=== PATIENT | male | born 1960 | race Caucasian/White ===

== ENCOUNTER 2020-09-15 13:56 | Outpatient (REF) | payer MEDICARE, MEDICAID, SELFPAY ==
[2020-09-15 15:00] LABS: MANUAL DIFF FLAG NO
[2020-09-15 15:04] LABS: Basophils Absolute Auto 0.1 X10*3/uL (0.0-0.2); Eosinophils Absolute Auto 0.1 X10*3/uL (0.0-0.4); Eosinophils Percent Auto 2.4 % (0-4); Hemoglobin 15.2 g/dl (14.0-18.0); Imm Gran Abs Auto 0.01 X10*3/uL (0.00-0.03); Imm Gran Pct Auto 0.2 % (0.0-0.4); Lymphocytes Absolute Auto 2.5 X10*3/uL (1.2-4.9); Lymphocytes Percent Auto 43.2 % (20-40); Mean Corpuscular HGB Conc 34.5 g/dl (31.0-36.0); Mean Corpuscular Hemoglobin 29.9 pg (27.0-33.0); Mean Corpuscular Volume 86.6 fL (80-98); Mean Platelet Volume 10.5 fL (9.4-12.4); Monocytes Absolute Auto 0.5 X10*3/uL (0.1-1.2); Monocytes Percent Auto 8.8 % (2-11); Neutrophils Absolute Auto 2.6 X10*3/uL (2.0-8.3); Neutrophils Percent Auto 44.4 % (45-73); Platelet Count 280 X10*3/uL (160-400); Red Blood Count 5.08 X10*6/uL (4.60-5.80); Red Cell Distribution Width 11.8 % (11.0-16.0); White Blood Count 5.8 X10*3/uL (4.8-10.8)
[2020-09-15 15:17] LABS: Estimated Average Glucose 114 mg/dL; Hemoglobin A1c % 5.6 %
[2020-09-15 15:34] LABS: Alanine Aminotransferase 35 U/L (0-40); Albumin Level 4.4 g/dL (3.5-5.0); Alkaline Phosphatase 43 U/L (39-117); Anion Gap 13 (12-20); Aspartate Amino Transferase 36 U/L (5-37); Bilirubin Total 0.3 mg/dL (0.0-1.0); Blood Urea Nitrogen 13 mg/dL (9-16); Calcium 8.9 mg/dL (8.4-10.2); Carbon Dioxide 28 mmol/L (22-29); Chloride 103 mmol/L (96-108); Cholesterol 174 mg/dL; Estimated Glomerular Filt Rate > 60; Glucose Random 98 mg/dL (60-115); HDL Cholesterol 43 mg/dL; LDL Cholesterol Calculated 110 mg/dl; Potassium 4.3 mmol/L (3.3-5.1); Sodium 140 mmol/L (135-145); Total Protein 6.9 g/dL (6.5-8.0); Triglycerides 109 mg/dL
[2020-09-15 15:55] LABS: Free T4 (Free Thyroxine) 1.13 ng/dL (0.71-1.85); Prostate Specific Antigen Scr 1.76 ng/mL (<0.05-4.0); Thyroid Stimulating Hormone 1.39 uIU/mL (0.32-4.0)
[2020-09-15 16:08] LABS: Folate > 20.0 ng/mL (> or = 4.0); Vitamin B12 884 pg/mL (200-900)
[2020-09-20 15:52] LABS: Testosterone, Total 168 ng/dL (250-1100)
== END 2020-09-15 13:57 | disposition home or self-care (01) ==
LOC: HO.LAB 13:56
PROVIDERS: Visit Provider Internal Medicine
DX: I10 Essential (primary) hypertension (principal); E78.00 Pure hypercholesterolemia, unspecified; R73.02 Impaired glucose tolerance (oral); Z12.5 Encounter for screening for malignant neoplasm of prostate
CPT/HCPCS: 36415; 80053; 80061; 82607; 82746; 83036; 84153; 84403; 84439; 84443; 85025

== ENCOUNTER 2021-04-19 07:56 | Day surgery (SDC) | payer MEDICARE, SELFPAY ==
--- NOTE | 2021-04-18 13:46 | HO.ANESPROP2 ---
Documented by User: Kylee Rome NP 04/18/21 13:47 HPI - Anesthesia Eval Consult details Narrative: 60yo M for Colonoscopy Tramadol daily PMFSH Active Problems Active Problems: All Active Problems (Updated 04/12/21 @ 09:35 by Ramila Sharp, ERIC) Medicare annual wellness visit, initial (Acute) Hypogonadism (Acute) Colon cancer screening (Acute) Low testosterone (Acute) Impaired glucose tolerance (Acute) Hypercholesterolemia (Acute) Hypertension (Acute) Obesity (BMI 30-39.9) (Acute) Anxiety and depression (Acute) Degenerative disc disease, cervical (Acute) GERD (gastroesophageal reflux disease) (Acute) Past Medical History Medical History Acute meniscal tear of knee Anxiety and depression Degenerative disc disease, cervical GERD (gastroesophageal reflux disease) History of OCD (obsessive compulsive disorder) Hypercholesterolemia Hypertension Impaired glucose tolerance Obesity (BMI 30-39.9) Polyp of left ear canal Vitamin D deficiency Family History Family History Father Lung cancer Mother Leukemia Paternal Grandfather Myocardial infarction Son In good health Substance abuse Brother Substance abuse Surgical History Surgical History History of appendectomy History of esophagogastroduodenoscopy (EGD) Total knee replacement status Social History Social History Alcohol intake: current Alcohol intake frequency: holidays/special occasions only Patient Tobacco Use Status: Never used Tobacco Use of substances other than those prescribed or required for medical reasons: No Are you DNR?: No Advance Directives: No Advance Directives Information Provided: Yes Meds Allergies Allergy/AdvReac Type Severity Reaction Status Date / Time No Known Allergies Allergy Verified 04/19/21 08:04 [No Known Allergies*] Exam Exam Date and Time: April 18, 2021 134 Assessment and Plan Assessment Anesthesia Assessment: Chart Reviewed Documented by User: Daiana Richmond MD 04/19/21 09:46 PMFSH Past Medical History Medical History Acute meniscal tear of knee Anxiety and depression Degenerative disc disease, cervical GERD (gastroesophageal reflux disease) History of OCD (obsessive compulsive disorder) Hypercholesterolemia Hypertension Impaired glucose tolerance Obesity (BMI 30-39.9) Polyp of left ear canal Vitamin D deficiency Family History Family History Father Lung cancer Mother Leukemia Paternal Grandfather Myocardial infarction Son In good health Substance abuse Brother Substance abuse Surgical History Surgical History History of appendectomy History of esophagogastroduodenoscopy (EGD) Total knee replacement status History of Problems with Anesthesia: No Social History Social History Alcohol intake: current Alcohol intake frequency: holidays/special occasions only Patient Tobacco Use Status: Never used Tobacco Use of substances other than those prescribed or required for medical reasons: No Are you DNR?: No Advance Directives: No Advance Directives Information Provided: Yes Meds Allergies Allergy/AdvReac Type Severity Reaction Status Date / Time No Known Allergies Allergy Verified 04/19/21 08:04 [No Known Allergies*] Exam Airway Mallampati Class: III TM Dist: >3cm Neck ROM: Full Loose/Missing/Broken Teeth: No Heart: RRR Lungs: CTA Assessment and Plan Assessment Anesthesia Assessment: Anesthesia Plan Discussed Final Anesthetic Review History of Problems with Anesthesia: No NPO: Yes ASA Class: II Final Preanesthetic Review: Meds/Allgs Chart Reviewed, Consent Obtained/Reviewed and Anes Risks/Benef Reviewed Patient Risk: Low Procedure Risk: Low Anesthetic Plan Anesthetic Plan: MAC: Disposition: Standard PACU
[2021-04-19 08:22] VITALS: BP 129/75; PULSE 50; RESP 18; TEMP 36.4; O2SAT 94; BMI 31.8
[2021-04-19] MEDS: Lactated Ringers 1,000 ML 100 ML IVCONT (08:38)
[2021-04-19 10:30] VITALS: BP 130/60; PULSE 54; RESP 18; TEMP 36.1; O2SAT 97
--- NOTE | 2021-04-19 10:34 | PM.OP ---
Brief Operative Note Date of Service: 04/19/21 Pre-op diagnosis: Screening Post-op diagnosis: other (Coolon polyps) Procedure: Colonoscopy to the cecum and TI with snare polypectomy Surgeon: Thanh Castillo Anesthesia: MAC Was an Failure Analysis Technician used for this Procedure?: No Estimated blood loss (mL): 2.0 Pathology: other (A. Colon polyp at 20cm B. Colon polyp at 15cm) Condition: stable Disposition: PACU
[2021-04-19 10:45] VITALS: BP 145/88; PULSE 54; RESP 18; TEMP 36.1; O2SAT 97
--- NOTE | 2021-04-19 10:59 | OP_ITS ---
SURGEON: Thanh Castillo MD INDICATIONS: The patient presents for evaluation of colorectal cancer screening and reported history of colon polyps. Full consent has been obtained from him for this, including risks of bleeding and perforation. PREOPERATIVE DIAGNOSIS: POSTOPERATIVE DIAGNOSIS: PROCEDURE PERFORMED: Colonoscopy to the cecum and terminal ileum with snare polypectomy. ESTIMATED BLOOD LOSS: COMPLICATIONS: ANESTHESIA: Monitored anesthesia care. ASSISTANTS: SPECIMENS: PREOPERATIVE DIAGNOSES: Colorectal cancer screening and personal history of colon polyps. POSTOPERATIVE DIAGNOSES: Colorectal cancer screening and personal history of colon polyps, colon polyps, diverticulosis and internal hemorrhoids. DESCRIPTION OF PROCEDURE: The patient was placed in the left lateral decubitus position. The digital rectal exam revealed no abnormalities. The Olympus video pediatric colonoscope was entered into the rectum and advanced easily to the cecum. Once in the cecum, I did identify normal-appearing cecal pouch with appendiceal orifice and a normal-appearing ileocecal valve. The terminal ileum was cannulated and appeared normal. The scope was withdrawn back in the colon. The entire cecum and ileocecal valve appeared normal. The scope was slowly withdrawn assessing all mucosal surfaces carefully. There was a fair amount of liquid stool present in the colon, but considerable time was spent irrigating and suctioning away the liquid to ultimately allow for a very good prep. At 20 cm, was an approximately 10 mm polyp, which was snared and recovered by suction. The polypectomy site appeared clean, without any sign of residual polyp nor bleeding. At 15 cm, was approximately 8 mm polyp, which was snared and recovered by suction. The polypectomy site appeared clean, without any sign of residual polyp nor bleeding. I did not visualize any other polyps, colitis, nor angiodysplasia. There was a mild amount of sigmoid diverticulosis. In the rectum, scope was retroflexed visualizing internal hemorrhoids, but no other pathology. The rectal mucosa appeared normal. The scope was straightened out and withdrawn from the patient. He tolerated the procedure well and was returned to the recovery area in stable condition. IMPRESSION: 1. Colon polyps, status post snare polypectomy. 2. Diverticulosis. 3. Internal hemorrhoids. PLAN: The results of the pathology will be checked. I would recommend a repeat colonoscopy in 5 years for further screening. He was advised not to use any aspirin and NSAIDs for 1 week. MD OLU Carvalho/PORTILLO / [id number]
== END 2021-04-19 11:31 | disposition home or self-care (01) ==
PROVIDERS: PCP Internal Medicine; Visit Provider Internal Medicine
PROC: 0DJD8ZZ Inspection of Lower Intestinal Tract, Via Natural or Artificial Opening Endoscopic (ICD-10-PCS; CPT 45378; principal; 2021-04-19 09:10)
DX: Z12.11 Encounter for screening for malignant neoplasm of colon (principal); D12.6 Benign neoplasm of colon, unspecified; K63.5 Polyp of colon; K57.30 Diverticulosis of large intestine without perforation or abscess without bleeding; K64.8 Other hemorrhoids; Z86.010 Personal history of colon polyps; I10 Essential (primary) hypertension
CPT/HCPCS: 45385; 88305

== ENCOUNTER 2022-04-05 10:03 | Outpatient (REF) | payer MEDICARE, SELFPAY ==
--- NOTE | ~2022-04-05 | XR_ITS ---
EXAMINATION: XR SHOULDER, LEFT CLINICAL INFORMATION: Left shoulder pain. Strain. COMPARISON: None TECHNIQUE: Left shoulder is imaged in 3 views. FINDINGS: No fracture, dislocation, destructive process. No visible rotator cuff calcifications. The acromioclavicular alignment is normal. There are mild degenerative changes acromioclavicular joint. Mild whiskering inferior glenoid likely related to origin inferior glenohumeral ligaments. XR/XR shoulder LT min 2V IMPRESSION: -Mild degenerative change acromioclavicular joint. -No visible rotator cuff calcifications.
== END 2022-04-05 10:04 | disposition home or self-care (01) ==
LOC: HO.XRAY 10:03
PROVIDERS: PCP Internal Medicine; Visit Provider Physician Assistant
DX: S46.012A Strain of muscle(s) and tendon(s) of the rotator cuff of left shoulder, initial encounter (principal)
CPT/HCPCS: 73030

== ENCOUNTER → 2022-04-10 10:41 | Outpatient (BNVA) | payer MEDICARE, SELFPAY | PROVIDERS: PCP Internal Medicine; Visit Provider Physician Assistant | DX: M75.102 Unspecified rotator cuff tear or rupture of left shoulder, not specified as traumatic (principal) | CPT/HCPCS: 20610; 99202; J1040 ==

== ENCOUNTER 2022-04-24 07:21 | Outpatient (REF) | payer MEDICARE, SELFPAY ==
--- NOTE | ~2022-04-24 | MR_ITS ---
EXAMINATION: MRI LEFT SHOULDER WITHOUT CONTRAST CLINICAL INFORMATION: S46.012A - Strain of muscle(s) and tendon(s) of the rotator cuff of left... COMPARISON: None. TECHNIQUE: MR images of the shoulder were obtained on a 1.5 Nidia high-field strength scanner without intravenous contrast material. FINDINGS: ROTATOR CUFF: There is moderate tendinosis of the supraspinatus at the insertion with a few small foci of fluid signal at the footprint measuring between 1 and 4 mm in diameter, most consistent with areas of concealed interstitial delamination. Foci of subcortical edema and cystic change are present at the greater tuberosity deep to the supraspinatus insertion. No discrete surfacing tears. There is mild subscapularis tendinosis. Infraspinatus and teres minor are normal. No muscle atrophy or fatty infiltration. BICEPS: Normal CORACOACROMIAL ARCH: The undersurface of the acromion is flat with no subacromial spur. Moderate acromioclavicular osteoarthritis. Trace subacromial subdeltoid bursal fluid. LABRUM/CAPSULE: There is a near circumferential tear of the glenoid labrum with a linear focus of intermediate increased signal intensity occurring at the attachment of the glenoid rim. This tear is most pronounced anteroinferiorly where there is a small para labral cyst measuring 1 cm in diameter. Involvement of the posteroinferior labrum is more ill-defined. Anterior band inferior glenohumeral ligament is thickened and edematous. GLENOHUMERAL JOINT/MARROW: Moderate-sized marginal osteophytes are evident at the anterior glenoid rim, associated with [id number] nonuniform articular cartilage loss at the anterior third of the glenoid articular surfaces. No fracture or malalignment. No joint effusion. Marrow signal is normal. MR/MR shoulder LT wo con IMPRESSION: 1. Circumferential tear of the glenoid labrum with mild associated glenohumeral osteoarthritis, most pronounced at the anterior third of the glenoid. 2. Moderate supraspinatus tendinosis with small subcentimeter foci of concealed interstitial delamination. No surfacing rotator cuff tears. 3. Moderate acromioclavicular osteoarthritis. 4. Mild capsular thickening and edema at the glenohumeral joint, likely reactive to the adjacent labral pathology and arthritis. Mild changes of adhesive capsulitis are on the differential, though less likely.
== END 2022-04-24 07:22 | disposition home or self-care (01) ==
LOC: HO.MRI 07:21
PROVIDERS: PCP Internal Medicine; Visit Provider Physician Assistant
DX: S46.012A Strain of muscle(s) and tendon(s) of the rotator cuff of left shoulder, initial encounter (principal)
CPT/HCPCS: 73221

== ENCOUNTER → 2022-05-10 14:00 | Outpatient (BNVA) | payer MEDICARE, SELFPAY | PROVIDERS: PCP Internal Medicine; Visit Provider Physician Assistant | DX: Z01.818 Encounter for other preprocedural examination (principal); S43.432D Superior glenoid labrum lesion of left shoulder, subsequent encounter; M75.22 Bicipital tendinitis, left shoulder; M19.019 Primary osteoarthritis, unspecified shoulder | CPT/HCPCS: 99212 ==

== ENCOUNTER 2022-05-16 10:19 | Day surgery (SDC) | payer MEDICARE, SELFPAY ==
--- NOTE | 2022-05-15 09:07 | HO.ANESPROP2 ---
Documented by User: Kylee Rome NP 05/15/22 09:07 HPI - Anesthesia Eval Consult details Narrative: 61yo M for Left Shoulder Arthroscopy, possible labral debridement, possible bicep tenotomy PMFSH Active Problems Active Problems: All Active Problems (Updated 05/10/22 @ 20:48 by Eagle Felipe PA-C) Osteoarthritis of glenohumeral joint (Acute) Biceps tendonitis on left (Acute) Tear of left glenoid labrum (Acute) Painful arc syndrome of left shoulder (Acute) Tendinopathy of left shoulder (Acute) Left rotator cuff tear (Acute) Medicare annual wellness visit, initial (Acute) Hypogonadism (Acute) Colon cancer screening (Acute) Low testosterone (Acute) Impaired glucose tolerance (Acute) Hypercholesterolemia (Acute) Hypertension (Acute) Obesity (BMI 30-39.9) (Acute) Anxiety and depression (Acute) Degenerative disc disease, cervical (Acute) GERD (gastroesophageal reflux disease) (Acute) Past Medical History Medical History Acute meniscal tear of knee Anxiety and depression Degenerative disc disease, cervical GERD (gastroesophageal reflux disease) History of OCD (obsessive compulsive disorder) Hypercholesterolemia Hypertension Impaired glucose tolerance Obesity (BMI 30-39.9) Polyp of left ear canal Vitamin D deficiency Family History Family History Father Lung cancer Mother Leukemia Paternal Grandfather Myocardial infarction Son In good health Substance abuse Brother Substance abuse Surgical History Surgical History History of appendectomy History of esophagogastroduodenoscopy (EGD) Total knee replacement status History of Problems with Anesthesia: No Social History Social History Alcohol intake: current Alcohol intake frequency: does not drink Patient Tobacco Use Status: Never used Tobacco 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 occupational status: 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 Allergies Allergy/AdvReac Type Severity Reaction Status Date / Time No Known Allergies Allergy Verified 05/16/22 10:29 [No Known Allergies*] Exam Exam Date and Time: May 15, 2022 0907 Assessment and Plan Assessment Anesthesia Assessment: Chart Reviewed Final Anesthetic Review History of Problems with Anesthesia: No Documented by User: Walter Leon MD 05/16/22 16:55 HPI - Anesthesia Eval Consult details Narrative: 61yo M for Left Shoulder Arthroscopy, possible labral debridement, possible bicep tenotomy neck pain with radiation to b/l UE with tingling and numbness PMFSH Past Medical History Medical History Acute meniscal tear of knee Anxiety and depression Degenerative disc disease, cervical GERD (gastroesophageal reflux disease) History of OCD (obsessive compulsive disorder) Hypercholesterolemia Hypertension Impaired glucose tolerance Obesity (BMI 30-39.9) Polyp of left ear canal Vitamin D deficiency Functional capacity: independent ambulation Family History Family History Father Lung cancer Mother Leukemia Paternal Grandfather Myocardial infarction Son In good health Substance abuse Brother Substance abuse Family history of problems with anesthesia: No Surgical History Surgical History History of appendectomy History of esophagogastroduodenoscopy (EGD) Total knee replacement status Social History Social History Alcohol intake: current Alcohol intake frequency: does not drink Patient Tobacco Use Status: Never used Tobacco 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 occupational status: 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 Allergies Allergy/AdvReac Type Severity Reaction Status Date / Time No Known Allergies Allergy Verified 05/16/22 10:29 [No Known Allergies*] Exam Airway Mallampati Class: IV TM Dist: <=3cm Neck ROM: Limited Loose/Missing/Broken Teeth: Yes (Poor dentition globally , multiple chipped teeth , fillings ) Heart: S1,S2 Lungs: b/l breath sounds Assessment and Plan Assessment Anesthesia Assessment: Anesthesia Plan Discussed Final Anesthetic Review Family History of Problems with Anesthesia: No NPO: Yes ASA Class: III Final Preanesthetic Review: Meds/Allgs Chart Reviewed, Consent Obtained/Reviewed and Anes Risks/Benef Reviewed Patient Risk: Intermediate Procedure Risk: Intermediate Anesthetic Plan Anesthetic Plan: GA and Regional Block Disposition: Standard PACU
[2022-05-16] VITALS (10 sets, daily range): BP systolic 115–179; BP diastolic 30–96; PULSE 56–73; RESP 14–16; TEMP 36.1–37.1; O2SAT 92–97; BMI 34.5
[2022-05-16] MEDS: Lactated Ringers 1,000 ML 100 ML IVCONT (10:51)
--- NOTE | 2022-05-16 12:13 | MHC.SHP ---
Pre-Procedural Eval Section A Date of Service: 05/16/22 The patient is an INPATIENT: No Changes since office visit: Yes Patient answered all questions; No Cold of Flu in the past 2 weeks, No New Medical Problems and No Changes in Medication The History & Physical has been completed within 30 days and I have reviewed it.: Yes Section B Chief Complaint: Osteomyelitis, Bicipital tendinitis, labram lesion Allergies: Allergies Allergy/AdvReac Type Severity Reaction Status Date / Time No Known Allergies Allergy Verified 05/16/22 10:29 [No Known Allergies*] Plan I have reviewed the history and physical and performed a pertinent physical examination on my patient. No changes have occurred unless specified.
--- NOTE | 2022-05-16 13:55 | P.BOP_ITS ---
Brief Operative Note Date of Service: 05/16/22 Pre-op diagnosis: Left shoulder labral tear Post-op diagnosis: other (Left shoulder labral tear 2) Left shoulder MICHELLE 3) left shoulder ACJ OA) Procedure: Shoulder arthroscopy with labral deribemend, chondroplasty, SAD and DCE Surgeon: Randall Ann MD Anesthesia: GETA and regional Was an Technical Writing Lead/Mgr used for this Procedure?: Yes Technical Writing Lead/Mgr: Jessie Bo Estimated blood loss (mL): 5 IV fluids (mL): 0 Pathology: other Condition: stable Disposition: PACU
--- NOTE | 2022-06-05 09:15 | W.PM.OPN ---
Operative Note Operative Note Date of Service: 05/16/22 Narrative: Date of Service: 05/16/22 Pre-op diagnosis: Left shoulder labral tear Post-op diagnosis: other (Left shoulder labral tear 2) Left shoulder MICHELLE 3) left shoulder ACJ OA) Procedure: Left shoulder arthroscopy with labral debridement, chondroplasty, SAD and DCE Surgeon: Randall Ann MD Anesthesia: GETA and regional Was an State Wildlife Officer used for this Procedure?: Yes State Wildlife Officer: Jessie Bo Estimated blood loss (mL): 5 IV fluids (mL): 0 Pathology: other Condition: stable Disposition: PACU Procedure in detail: Patient was brought to the operating room and placed the the beach chair position. All bony prominences were well padded and the limb was prepped and draped in standard sterile fashion. A time out was called to identify proper site, proper procedure and proper surgeon. IV antibiotics per weight were administered. I began by making a posterolateral stab incision with a 15 blade. A blunt trochar was placed into the glenohumeral joint and I insufflated the joint with saline and a 30 degree arthroscope was placed. I established an outside- in anterior portal just distal to the biceps tendon. I then began my inspection of the glenohumeral joint. The biceps was intact but the labrum was torn circumferentially without instability. There was a central G4 change of the glenoid without associated humeral head changes. There was no appreciable undersurface RTC tear. The subcapularis was intact. I debrided the loose cartilage of the glenoid and the degenerative labral tearing circumferentially. I then removed the trochar and entered the subacromial space. A direct lateral portal was then established and I performed a bursectomy. The cuff was then examined. There was an intact supra and infraspinatus. I then perfromed a 5mm subacromial decompression. The anterior 50% of the acromion was decompressed. Then, via my anterior portal, I performed a 5mm distal clavicle resection with a full radius shaver taking care to presereve the superior capsule. Once I was satisfied with the extent of decompression and the distal clavicle excision. my final images were captured and I removed all instrumentation. Portals were closed with nylon. Patient was placed in an abduction sling, extubated and brought to the recovery room in stable condition. There were no known complications.
== END 2022-05-16 16:01 | disposition home or self-care (01) ==
LOC: HO.SSS 10:19
PROVIDERS: PCP Internal Medicine; Visit Provider Orthopaedic Surgery
PROC: (CPT 29805; principal; 2022-05-16 13:00)
DX: S43.432A Superior glenoid labrum lesion of left shoulder, initial encounter (principal); M19.012 Primary osteoarthritis, left shoulder; M75.22 Bicipital tendinitis, left shoulder; X58.XXXA Exposure to other specified factors, initial encounter; Y93.9 Activity, unspecified; Y92.9 Unspecified place or not applicable; Y99.8 Other external cause status; M50.30 Other cervical disc degeneration, unspecified cervical region; E78.00 Pure hypercholesterolemia, unspecified; I10 Essential (primary) hypertension; R73.02 Impaired glucose tolerance (oral); F41.8 Other specified anxiety disorders; E66.9 Obesity, unspecified; E55.9 Vitamin D deficiency, unspecified; Z68.35 Body mass index [BMI] 35.0-35.9, adult
CPT/HCPCS: 29827; 29826; 29824; J0171; J0690; J2250; J2795; J3010

== ENCOUNTER → 2022-05-28 08:01 | Outpatient (BNVA) | payer MEDICARE, SELFPAY | PROVIDERS: PCP Internal Medicine; Visit Provider Physician Assistant | DX: S43.432D Superior glenoid labrum lesion of left shoulder, subsequent encounter (principal); M75.22 Bicipital tendinitis, left shoulder; M19.019 Primary osteoarthritis, unspecified shoulder | CPT/HCPCS: 99212 ==

== ENCOUNTER 2022-06-19 07:00 | Outpatient (RCR) | payer MEDICARE, SELFPAY ==
--- NOTE | 2022-05-23 10:48 | MHC.PT.EP ---
[facility] [place] Office [place] Office [place] Office [address] [phone] F: [phone] F: [phone] F: [phone] F: [phone] Physical Therapy Plan of Care Date of Evaluation: Date of Surgery: 05/16/22 Diagnosis: s/p L SAD and DCE 05/16 () Assessment: pt is a 61 y/o male presenting to physical therapy w/ referring diagnosis s/p L SAD and DCE. Impairments include pain, decreased range of motion, decreased strength, impaired functional mobility, impaired postural awareness, and altered ambulation mechanics. pt is a good candidate for skilled PT due to age, potential remediation of impairments, typical disease/condition progression and prognosis, comorbidities, and motivation. pt would benefit from skilled PT intervention to provide a tailored strengthening and stretching exercise program, functional training, gait training, postural re-training, neuromuscular re-education, modalities as needed for pain, equipment safety demonstration. Frequency and Duration: The patient will be seen 2x/wk for 8 wks Short Term Goals: pt will be I w/ HEP to promote self-management of condition. pt will improve L shoulder flexion to 90* to promote ease in reaching for objects around his home. Sales And Marketing Representative Goals: pt will report a statistically significant improvement in self-reported outcome measure, SPADI, to promote return to PLOF. pt will improve L shoulder flexion and elbow flexion strength to at least 4+/5 to promote ease in carrying 25# object. Treatment Plan: Modalities to reduce pain, spasms and effusion. Manual therapy to restore motion and function. Therapeutic exercise to improve strength and flexibility. Neuromuscular re-education for posture and balance. Therapeutic activities to return to functional activities of daily living. Electronically signed by: Nilda Reyna PT, DPT Please sign and return to therapist. Thank you for your referral.
--- NOTE | 2022-07-11 17:51 | MHC.PT.DC ---
[facility] [place] [facility] [place] Office [place] Office [address] [phone] F: [phone] F: [phone] F: [phone] F: [phone] Physical Therapy Discharge Report Diagnosis: s/p L SAD and DCE 05/16 () Date of Surgery: 05/16/22 Date of Evaluation: 05/23/22 Date of Discharge: 07/11/22 Treatments to Date: 6 Cancellations to Date: 1 No Shows to Date: 0 Discharge Status: Improved Function Independent with HEP Patient Elected to Stop Discharge Summary: The patient called to discharge himself as he was able to integrate his home exercise program into his gym routine and felt confident he could continue his shoulder rehab on his own. He is discharged from this physical therapy plan of care per his request. Electronically signed by: Nilda Reyna PT, DPT Please sign and return to therapist. Thank you for your referral.
== END 2022-07-11 17:51 | disposition home or self-care (01) ==
LOC: HO.PT 07:00
PROVIDERS: Visit Provider Orthopaedic Surgery
DX: M19.012 Primary osteoarthritis, left shoulder (principal); M75.22 Bicipital tendinitis, left shoulder
CPT/HCPCS: 97110; 97150; 97162

== ENCOUNTER → 2022-06-25 10:02 | Outpatient (BNVA) | payer MEDICARE, SELFPAY | PROVIDERS: PCP Internal Medicine; Visit Provider Physician Assistant | DX: S43.432D Superior glenoid labrum lesion of left shoulder, subsequent encounter (principal); M75.22 Bicipital tendinitis, left shoulder; M19.019 Primary osteoarthritis, unspecified shoulder | CPT/HCPCS: 99212 ==

== ENCOUNTER → 2022-08-28 15:02 | Outpatient (BNVA) | payer MEDICARE, SELFPAY | PROVIDERS: PCP Internal Medicine; Visit Provider Urology | DX: E29.1 Testicular hypofunction (principal); R79.89 Other specified abnormal findings of blood chemistry | CPT/HCPCS: 99202 ==

== ENCOUNTER 2022-08-29 07:11 | Outpatient (REF) | payer MEDICARE, SELFPAY ==
[2022-08-29 08:11] LABS: Albumin Level 4.2 g/dL (3.5-5.0)
[2022-08-30 17:49] LABS: Follicle Stimulating Hormone 7.5 mIU/mL (1.6-8.0); Lutenizing Hormone 2.6 mIU/mL (1.6-15.2); Prolactin 7.9 ng/mL (2.0-18.0)
[2022-08-30 23:24] LABS: Sex Hormone Binding Globulin 21 nmol/L (22-77)
[2022-09-04 15:09] LABS: Testosterone, Total 198 ng/dL (250-1100)
[2022-09-05 22:09] LABS: Estradiol Ultra Sensitive 14 pg/mL (< OR = 29)
[2022-09-09 12:53] LABS: Testosterone, Free 37.9 pg/mL (35.0-155.0); Testosterone, Total 206 ng/dL (250-1100)
== END 2022-08-29 07:12 | disposition home or self-care (01) ==
LOC: HO.LAB 07:11
PROVIDERS: Physician Assistant; PCP Internal Medicine; Visit Provider Urology
DX: R79.89 Other specified abnormal findings of blood chemistry (principal)
CPT/HCPCS: 36415; 82040; 82670; 83001; 83002; 84146; 84270; 84402; 84403

== ENCOUNTER → 2022-09-13 11:20 | Outpatient (BNVA) | payer MEDICARE, SELFPAY | PROVIDERS: PCP Internal Medicine; Visit Provider Urology | DX: E29.1 Testicular hypofunction (principal); N52.9 Male erectile dysfunction, unspecified; R68.82 Decreased libido; F41.8 Other specified anxiety disorders | CPT/HCPCS: Q3014 ==

== ENCOUNTER 2022-12-14 06:33 | Outpatient (REF) | payer MEDICARE, MEDICAID, SELFPAY ==
[2022-12-14 06:46] LABS: MANUAL DIFF FLAG NO
[2022-12-14 07:26] LABS: Basophils Absolute Auto 0.1 X10*3/uL (0.0-0.2); Basophils Percent Auto 1.4 % (0-2); Eosinophils Absolute Auto 0.2 X10*3/uL (0.0-0.4); Eosinophils Percent Auto 4.1 % (0-4); Hematocrit 46.4 % (42.0-52.0); Hemoglobin 15.7 g/dl (14.0-18.0); Imm Gran Abs Auto 0.01 X10*3/uL (0.00-0.03); Imm Gran Pct Auto 0.2 % (0.0-0.4); Lymphocytes Absolute Auto 2.5 X10*3/uL (1.2-4.9); Lymphocytes Percent Auto 43.1 % (20-40); Mean Corpuscular HGB Conc 33.8 g/dl (31.0-36.0); Mean Corpuscular Hemoglobin 29.3 pg (27.0-33.0); Mean Corpuscular Volume 86.6 fL (80.0-98.0); Mean Platelet Volume 10.1 fL (9.4-12.4); Monocytes Absolute Auto 0.5 X10*3/uL (0.1-1.2); Monocytes Percent Auto 9.2 % (2-11); Neutrophils Absolute Auto 2.5 x10*3/uL (2.0-8.3); Platelet Count 301 X10*3/uL (160-400); Red Blood Count 5.36 X10*6/uL (4.60-5.80); Red Cell Distribution Width 12.1 % (11.0-16.0); White Blood Count 5.9 X10*3/uL (4.8-10.8)
[2022-12-14 07:52] LABS: Estimated Average Glucose 120 mg/dL; Hemoglobin A1c % 5.8 %
[2022-12-14 07:59] LABS: Alanine Aminotransferase 17 U/L (0-40); Albumin Level 4.2 g/dL (3.5-5.0); Alkaline Phosphatase 47 U/L (39-117); Anion Gap 14 (12-20); Aspartate Amino Transferase 18 U/L (5-37); Bilirubin Total 0.9 mg/dL (0.0-1.0); Blood Urea Nitrogen 11 mg/dL (9-16); Calcium 9.4 mg/dL (8.4-10.2); Carbon Dioxide 25 mmol/L (22-29); Chloride 104 mmol/L (96-108); Cholesterol 207 mg/dL; Estimated Glomerular Filt Rate > 60; Glucose Random 106 mg/dL (60-115); HDL Cholesterol 38 mg/dL; LDL Cholesterol Calculated 132 mg/dl; Potassium 4.3 mmol/L (3.3-5.1); Sodium 139 mmol/L (135-145); Total Protein 6.6 g/dL (6.5-8.0); Triglycerides 188 mg/dL
[2022-12-14 08:29] LABS: Folate 11.2 ng/mL (> or = 4.0); Free T4 (Free Thyroxine) 0.98 ng/dL (0.71-1.85); Prostate Specific Antigen Scr 3.59 ng/mL (<0.05-4.0); Thyroid Stimulating Hormone 2.13 uIU/mL (0.32-4.0); Vitamin B12 529 pg/mL (200-900)
[2022-12-21 15:48] LABS: Testosterone, Total 228 ng/dL (250-1100)
== END 2022-12-14 06:34 | disposition home or self-care (01) ==
LOC: HO.LAB 06:33
PROVIDERS: Absent Provider Urology; PCP Internal Medicine; Visit Provider Internal Medicine
DX: Z12.5 Encounter for screening for malignant neoplasm of prostate (principal); N52.9 Male erectile dysfunction, unspecified; R73.02 Impaired glucose tolerance (oral); E78.00 Pure hypercholesterolemia, unspecified
CPT/HCPCS: 36415; 80053; 80061; 82607; 82746; 83036; 84153; 84402; 84403; 84439; 84443; 85025

== ENCOUNTER → 2022-12-21 12:29 | Outpatient (BNVA) | payer MEDICARE, MEDICAID, SELFPAY | PROVIDERS: PCP Internal Medicine; Visit Provider Urology | DX: N40.1 Benign prostatic hyperplasia with lower urinary tract symptoms (principal); N13.8 Other obstructive and reflux uropathy; N52.9 Male erectile dysfunction, unspecified | CPT/HCPCS: 99212 ==

== ENCOUNTER 2023-05-22 08:03 | Outpatient (REF) | payer MEDICARE, MEDICAID, SELFPAY ==
[2023-05-26 14:14] LABS: Testosterone, Total 201 ng/dL (250-1100)
[2023-05-26 23:38] LABS: Testosterone, Free 36.9 pg/mL (35.0-155.0); Testosterone, Total 222 ng/dL (250-1100)
== END 2023-05-22 08:04 | disposition home or self-care (01) ==
LOC: HO.LAB 08:03
PROVIDERS: Absent Provider Urology; PCP Internal Medicine; Visit Provider Internal Medicine
DX: N40.1 Benign prostatic hyperplasia with lower urinary tract symptoms (principal); N13.8 Other obstructive and reflux uropathy; E78.00 Pure hypercholesterolemia, unspecified; R73.02 Impaired glucose tolerance (oral); Z12.5 Encounter for screening for malignant neoplasm of prostate
CPT/HCPCS: 36415; 80053; 80061; 83036; 84153; 84402; 84403

== ENCOUNTER 2023-05-28 07:59 | Outpatient (AMB) | payer MEDICARE, MEDICAID, SELFPAY ==
[2023-05-28 08:11] VITALS: BP 138/78; PULSE 83; O2SAT 98; BMI 31.9
--- NOTE | 2023-05-28 08:11 | MHC.PC.OV ---
Vital Signs 05/28/23 08:11 Height 6 ft Weight 235 lb BMI 31.9 BP 138/78 Blood Pressure Location Lt brachial Position Sitting Pulse 83 Pulse Source Pulse Oximeter Pulse Oximetry (%) 98 Oxygen Delivery Method Room Air Intake Visit Reasons: chlolesterol IGT Allergies No Known Allergies [No Known Allergies*] Allergy (Verified 05/28/23 08:11) Tobacco use date assessed: 01/18/23 Fall risk assessment: No Falls in past year Last assessed Fall Risk: 05/28/23 Dental Screening Dental Screen Date: 05/28/23 Did you have a dental visit in the last 12 months?: Yes Did you have a dental problem in the last 6 months where you did not have access to dental care?: No Was dental information given to patient?: Patient has dentist HPI chlolesterol IGT HPI Details 62-year-old obese male with BPH hypertension GERD hypercholesterolemia impaired glucose tolerance hypogonadism in generalized anxiety disorder last seen in January 2023. Patient is here for follow-up. Colonoscopy is up-to-date April 2021 [facility] Medical History Acute meniscal tear of knee Anxiety and depression Biceps tendonitis on left Degenerative disc disease, cervical GERD (gastroesophageal reflux disease) History of OCD (obsessive compulsive disorder) Hypercholesterolemia Hypertension Impaired glucose tolerance Low testosterone Medicare annual wellness visit, initial Obesity (BMI 30-39.9) Osteoarthritis of glenohumeral joint Painful arc syndrome of left shoulder Polyp of left ear canal Tendinopathy of left shoulder Vitamin D deficiency Surgical History History of appendectomy History of esophagogastroduodenoscopy (EGD) Total knee replacement status Family History Father Lung cancer Mother Leukemia Paternal Grandfather Myocardial infarction Son In good health Substance abuse Brother Substance abuse Social History Housing: Apartment Alcohol intake: current Alcohol intake frequency: does not drink Patient Tobacco Use Status: Never used Tobacco e-Cigarette/Vaping Use: Never Used Second Hand Smoke Exposure: No Current occupational status: 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 1. Little interest or pleasure in doing things: not at all 2. Feeling down, depressed, or hopeless: not at all 3. Trouble falling or staying asleep, or sleeping too much: not at all 4. Feeling tired or having little energy: not at all 5. Poor appetite or overeating: not at all 6. Feeling bad about yourself - or that you are a failure or have let yourself or your family down: not at all 7. Trouble concentrating on things, such as reading the newspaper or watching television: not at all 8. Moving or speaking so slowly that other people could have noticed. Or the opposite - being so fidgety or restless that you have been moving around a lot more than usual: not at all 9. Thoughts that you would be better off or of hurting yourself in some way: not at all Total score: 0 Depression Screening Interpretation: Negative Depression Screening Done: Yes Source: Developed by Drs. Thanh Campbell, Jose Alfredo Johnson and colleagues, with an educational karoline from [employer]. Thrive Questionnaire Date Thrive assessed: 01/18/23 AUDIT C Alcohol Use Questionnaire (AUDIT-C) 1. How often do you have a drink containing alcohol?: Monthly or less 2. How many drinks containing alcohol do you have on a typical day when you are drinking?: 1 or 2 3. How often do you have six or more drinks on one occasion?: Never Total Score: 1 SUZANNE-7 AMB Questionnaire SUZANNE-7 Date SUZANNE - 7 assessed: 01/18/23 Source: Developed by Drs. Thanh Campbell, Laura Hawthorne, Jose Alfredo Moreland and colleagues, with an educational karoline from [employer]. Physical exam (Primary Care) Vital Signs: Last Vital Signs Pulse 83 05/28/23 08:11 BP 138/78 05/28/23 08:11 Pulse Ox 98 05/28/23 08:11 Oxygen Delivery Method Room Air 05/28/23 08:11 BMI result Body Mass Index 31.9 Tobacco/Smoking Status: Tobacco use Status Tobacco use date assessed 01/18/23 05/28/23 08:15 Patient Tobacco Use Status Never used Tobacco 05/28/23 08:15 e-Cigarette/Vaping Use Never Used 05/28/23 08:15 PHQ-9: PHQ-9 Score PHQ-9: Total score 0 05/28/23 08:15 Depression Screening Interpretation: Negative Thrive Assessment: Date of Thrive Assessment Date Thrive assessed 01/18/23 05/28/23 08:15 Const General: alert; No acute distress Eyes Conjunctivae: conjunctivae normal Resp Auscultation: clear to auscultation bilaterally Cardio Rate: regular rate Rhythm: regular rhythm GI Inspection: Yes normal to inspection Extrem General: Yes normal to inspection and No edema Office Procedures Flu Questionnaire Does the patient have a severe egg allergy?: No Does the patient have severe life threatening allergies?: No Does the patient have a fever or illness today?: No Has the patient ever had Guillain-[place] Syndrome?: No Has the patient ever had any past reaction to a flu shot?: No Immunizations flu vacc [id number] 6mos up(PF) 60 mcg(15 mcgx4)/0.5 mL IM syringe Performing Provider: Fabio Gary MD [facility] [place] [facility] Documented (not given) by: Billie Meehan CMA on 05/28/23 08:20 Reason Not Given: Patient Refused Assessment and Plan Assessment & Plan (1) GERD (gastroesophageal reflux disease): Code(s): K21.9 - Gastro-esophageal reflux disease without esophagitis Plan: Avoid the foods that causes that usually spicy foods, tomato products, juices, coffee, soda and foods that your sensitive to. After eating do not lie down, allow 3-4 hours before in lie down. And keep the head of bed above 30 degrees to avoid the acid from going up. (2) Obesity (BMI 30-39.9): Code(s): E66.9 - Obesity, unspecified Plan: Diet and exercise (3) Hypertension: Code(s): I10 - Essential (primary) hypertension Qualifiers: Hypertension type: essential hypertension Qualified Code(s): I10 - Essential (primary) hypertension Plan: Continue with blood pressure medication. Decrease salt intake and exercise continue with lisinopril 5 mg once a day (4) Hypercholesterolemia: Code(s): E78.00 - Pure hypercholesterolemia, unspecified Plan: Avoid fried foods, chicken skin, eggs, butter margarine, pastries and meat. Be it pork or beef they have a lot of cholesterol LDL goal of less than 130 and triglyceride of less than 150 diet controlled (5) Impaired glucose tolerance: Code(s): R73.02 - Impaired glucose tolerance (oral) Plan: Decrease the amount of carbohydrate intake, pasta, bread, rice and potatoes are all sugar and that is aside from all the sweet stuff, remember that fruits are good but they are Sweet also. (6) Hypogonadism: (7) Generalized anxiety disorder: Comment: Declined referral for counseling Code(s): F41.1 - Generalized anxiety disorder Plan: Continue with medications for anxiety as needed (8) BPH w urinary obs/LUTS: Code(s): N40.1 - Benign prostatic hyperplasia with lower urinary tract symptoms; N13.8 - Other obstructive and reflux uropathy Orders: Orders Comprehensive Met. Panel 3 Months E78.00 - Pure hypercholesterolemia, unspecified Free T4 (Free Thyroxine) 3 Months E78.00 - Pure hypercholesterolemia, unspecified Thyroid Stimulating Hormone 3 Months E78.00 - Pure hypercholesterolemia, unspecified Lipid Panel 3 Months E78.00 - Pure hypercholesterolemia, unspecified Influenza [id number] Immunization Today Z23 - Encounter for immunization Complete Blood Count Auto Diff 3 Months E78.00 - Pure hypercholesterolemia, unspecified Medications: Refilled tramadol 50 mg PO QID PRN 120 tabs 0RF pain Coding Level of Care Code Est Pt Level 4 (59297) Diagnoses GERD (gastroesophageal reflux disease) K21.9 Obesity (BMI 30-39.9) E66.9 Essential hypertension I10 Hypertension type: essential hypertension Hypercholesterolemia E78.00 Impaired glucose tolerance R73.02 Hypogonadism Generalized anxiety disorder F41.1 BPH w urinary obs/LUTS N40.1; N13.8
== END 2023-05-28 08:55 | disposition home or self-care (01) ==
PROVIDERS: PCP Internal Medicine; Visit Provider Internal Medicine
DX: K21.9 Gastro-esophageal reflux disease without esophagitis (principal); E66.9 Obesity, unspecified; I10 Essential (primary) hypertension; Z68.31 Body mass index [BMI] 31.0-31.9, adult; E78.00 Pure hypercholesterolemia, unspecified; R73.02 Impaired glucose tolerance (oral); F41.1 Generalized anxiety disorder; N40.1 Benign prostatic hyperplasia with lower urinary tract symptoms; N13.8 Other obstructive and reflux uropathy
CPT/HCPCS: 99214

== ENCOUNTER 2023-06-25 08:10 | Outpatient (AMB) | payer MEDICARE, MEDICAID, SELFPAY ==
--- NOTE | 2023-06-25 08:18 | A.OFFVIS_ITS ---
Intake Intake Visit Reasons: 6M LABS/PVR(set) Intake Note: Patient is present for Follow Up PSA Urology Med: Tadalafil Antibiotic Allergy: None Blood Thinner: None PVR- 0 mL Electro Mechanical Technician Required: No Accompanied by: Self / Same As Patient Allergies No Known Allergies [No Known Allergies*] Allergy (Verified 05/28/23 08:11) Medication List - Last Reconciled 06/25/23 by Gianni Peñaloza MD buspirone 10 mg PO BID 90 days lisinopril 5 mg PO DAILY lorazepam 1 mg PO BID PRN tadalafil 5 mg PO DAILY 90 days tramadol 50 mg PO QID PRN HPI HPI Comments History of Present Illness Details Krish is a pleasant male. He is a patient of Dr. Gary. He seen for the following urologic conditions - low testosterone - lower urinary tract symptoms Significant improvement in urinary function Is noticing spontaneous erections on tadalafil Remain on daily tadalafil Initiate testosterone gel 3 month follow-up labs Hypogonadism He presents today for further evaluation of complaints regarding low testosterone Initial symptoms include decreased libido, increased fatigue, erectile dysfunction The onset of symptoms has been gradual Erectile status - nocturnal erections to occur but not comparable to sexual stimulation Erectile quality - erections are adequate for penetration - erections are not maintained until ejaculation Associate conditions include hypertension, dyslipidemia, chronic pain with medication Concominant Medications - buspirone Laboratory results baseline - 10/02 168, 09/03 T 206 F 37 FSH 7.5, 06/03 T 222 F 37 Current therapy includes none. Prior therapy includes none Diagnosis based on history and laboratory results lab secondary to likely external medications suppression [facility] Medical History (Updated 06/25/23 @ 08:43 by Gianni Peñaloza MD) Low testosterone Osteoarthritis of glenohumeral joint Biceps tendonitis on left Painful arc syndrome of left shoulder Tendinopathy of left shoulder History of OCD (obsessive compulsive disorder) Medicare annual wellness visit, initial Acute meniscal tear of knee Polyp of left ear canal Impaired glucose tolerance Vitamin D deficiency Hypercholesterolemia Hypertension Obesity (BMI 30-39.9) Anxiety and depression Degenerative disc disease, cervical GERD (gastroesophageal reflux disease) Surgical History History of esophagogastroduodenoscopy (EGD) Total knee replacement status History of appendectomy Family History Father Lung cancer Mother Leukemia Paternal Grandfather Myocardial infarction Son In good health Substance abuse Brother Substance abuse Social History (Reviewed 12/21/22 @ 13:10 by Celia Joiner [facility]) Housing: Apartment Alcohol intake: current Alcohol intake frequency: does not drink Patient Tobacco Use Status: Never used Tobacco e-Cigarette/Vaping Use: Never Used Second Hand Smoke Exposure: No Current occupational status: 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 Cognitive needs: No Hearing needs: No Vision needs: Yes Review of Systems Const Denies chills and Denies fever(s) Card Reports no additional complaints and Denies syncope Resp Denies cough GI Denies abdominal pain and Denies heartburn Reports as per HPI and Denies change in libido Neuro Denies syncope Psych Denies change in libido Endo Denies change in libido Physical Exam Const General: cooperative, healthy appearing, comfortable and no acute distress Orientation/consciousness: patient oriented x3 HEENT Face and sinus: Yes normal facial exam Mouth: moist mucous membranes Neck Neck: Yes normal visual inspection, Yes full ROM and Yes trachea midline Chest Chest palpation & inspection: normal inspection of the chest Resp Effort & Inspection: normal respiratory effort, able to speak in complete sentences and no respiratory distress GI Inspection: Yes normal to inspection Back/Spine/Pelvis Cervical Spine: normal cervical lordosis Thoracic/Lumbar Spine: thoracic and lumbar spine normal to inspection Skin General skin exam: no rashes or lesions noted Neuro General: patient oriented x3, gait normal, tone normal and moves all extremities Extrem General: Yes normal to inspection and Yes capillary refill normal Assessment & Plan Assessment & Plan (1) Low testosterone: Code(s): R79.89 - Other specified abnormal findings of blood chemistry (2) BPH w urinary obs/LUTS: Code(s): N40.1 - Benign prostatic hyperplasia with lower urinary tract symptoms; N13.8 - Other obstructive and reflux uropathy (3) Erectile dysfunction: Code(s): N52.9 - Male erectile dysfunction, unspecified Plan Initiate testosterone 3 month labs Orders: Orders AMB Post Void Residual by ultrasound Today N39.8 - Other specified disorders of urinary system Prostate Specific Antigen 3 Months R7. - Other specified abnormal findings of blood chemistry Complete Blood Count no Diff 3 Months R7. - Other specified abnormal findings of blood chemistry Liver Panel 3 Months E29.1 - Testicular hypofunction, R7. - Other specified abnormal findings of blood chemistry Testosterone, Total 3 Months R7. - Other specified abnormal findings of blood chemistry Medications: New testosterone 1 packet transdermal QAM 30 days 75 grams 5RF R7. - Other s pecified abnormal findings of blood chemistry Refilled tadalafil 5 mg PO DAILY 90 days 90 tabs 1RF sexual activity N52.9 - Male erectile dysfunction, unspecified Patient Instructions: Imaging studies, laboratory and physical exam results were discussed and reviewed in detail. No major barriers to patient understanding were identified. An opportunity to ask questions regarding the treatment plan was provided. All questions were answered. The patient expressed understanding and agreement with the above treatment plan. The patient is aware they should contact our office by phone for worsening of their current condition or the appearance of new urologic symptoms. Compliance is encouraged with any medications and followup testing that is ordered. It is a privilege to participate in the urologic care of your patient. If you have any questions or concerns regarding treatment for the above conditions, or other urologic issues, please do not hesitate to contact me. The office telephone contact is [phone]. This note is constructed using voice recognition software. While every effort has been made to ensure accuracy cream gatherer errors may have been included. Yours sincerely, Dr Gianni Peñaloza MD, [facility] - Urology Providers of Expert, Compassionate Care for the Genitourinary System Coding Level of Care Code Est Pt Level 4 (56039) Diagnoses Low testosterone R7.89 BPH w urinary obs/LUTS N40.1; N13.8 Erectile dysfunction N52.9
== END 2023-06-25 08:49 | disposition home or self-care (01) ==
PROVIDERS: Visit Provider Urology
DX: R79.89 Other specified abnormal findings of blood chemistry (principal); N40.1 Benign prostatic hyperplasia with lower urinary tract symptoms; N13.8 Other obstructive and reflux uropathy; N52.9 Male erectile dysfunction, unspecified
CPT/HCPCS: 99214

== ENCOUNTER → 2023-06-25 08:10 | Outpatient (BNVA) | payer MEDICARE, MEDICAID, SELFPAY | PROVIDERS: Visit Provider Urology | DX: N40.1 Benign prostatic hyperplasia with lower urinary tract symptoms (principal); N13.8 Other obstructive and reflux uropathy; N52.9 Male erectile dysfunction, unspecified; R79.89 Other specified abnormal findings of blood chemistry | CPT/HCPCS: 99212 ==

== ENCOUNTER 2023-09-11 08:00 | Outpatient (AMB) | payer MEDICARE, MEDICAID, SELFPAY ==
[2023-09-11 08:29] VITALS: BP 132/84; PULSE 57; O2SAT 98; BMI 31.7
--- NOTE | 2023-09-11 08:29 | A.OFFPC_ITS ---
Vital Signs 09/11/23 08:29 Height 6 ft Weight 234 lb BMI 31.7 BP 132/84 Blood Pressure Location Lt brachial Position Sitting Pulse 57 Pulse Source Pulse Oximeter Pulse Oximetry (%) 98 Oxygen Delivery Method Room Air Intake Visit Reasons: Impaired glucose Tolerance, hypercholesterolemia Intake Note: Patient is here to follow up Stamp Press Operator Required: No Allergies No Known Allergies [No Known Allergies*] Allergy (Verified 09/11/23 08:29) Medication List - Last Reconciled 09/11/23 by Fbaio Gary MD buspirone 10 mg PO BID 90 days diclofenac sodium 1% (Arthritis Pain (diclofenac)) 4 grams topical QID lisinopril 5 mg PO DAILY lorazepam 1 mg PO BID PRN tadalafil 5 mg PO DAILY 90 days testosterone 1 packet transdermal QAM 30 days tramadol 50 mg PO QID PRN Tobacco use date assessed: 09/11/23 Fall risk assessment: No Falls in past year Last assessed Fall Risk: 09/11/23 Dental Screening Dental Screen Date: 09/11/23 Did you have a dental visit in the last 12 months?: Yes Did you have a dental problem in the last 6 months where you did not have access to dental care?: No Was dental information given to patient?: Patient has dentist HPI Impaired glucose Tolerance, hypercholesterolemia HPI Details 62-year-old obese male with hypertension , hypercholesterolemia GERD impaired glucose tolerance and generalized anxiety disorder. Last seen in May 2023. Patient is up-to-date with colonoscopy April 2021 5 years review of the notes follows up with urology for the hypogonadism uses tadalafil with good response and has been started on testosterone gel.(decreased libido increase fatigue erectile dysfunction). bilateral hip pain deny fall - hx of OA x-ray 2016 mild but now the pain has been getting worse. Deny any trauma patient has been exercising though and discussed about osteoarthritis as well as not to over do exercises. Patient continues to be heavy and he says he keeps trying but because of the pain has not been able to. Otherwise blood work requested was not done. And knows to get the blood work done. [facility] Medical History (Updated 09/11/23 @ 08:53 by Fabio Gary MD) Low testosterone Colon cancer screening Osteoarthritis of glenohumeral joint Biceps tendonitis on left Painful arc syndrome of left shoulder Tendinopathy of left shoulder History of OCD (obsessive compulsive disorder) Medicare annual wellness visit, initial Acute meniscal tear of knee Polyp of left ear canal Impaired glucose tolerance Vitamin D deficiency Hypercholesterolemia Hypertension Obesity (BMI 30-39.9) Anxiety and depression Degenerative disc disease, cervical GERD (gastroesophageal reflux disease) Surgical History History of esophagogastroduodenoscopy (EGD) Total knee replacement status History of appendectomy Family History Father Lung cancer Mother Leukemia Paternal Grandfather Myocardial infarction Son In good health Substance abuse Brother Substance abuse Social History Housing: Apartment Alcohol intake: current Alcohol intake frequency: does not drink Patient Tobacco Use Status: Never used Tobacco e-Cigarette/Vaping Use: Never Used Second Hand Smoke Exposure: No Current occupational status: 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 How often do you have a drink containing alcohol?: Monthly or less 2. How many drinks containing alcohol do you have on a typical day when you are drinking?: 1 or 2 3. How often do you have six or more drinks on one occasion?: Never Total Score: 1 SUZANNE-7 AMB Questionnaire SUZANNE-7 Date SUZANNE - 7 assessed: 09/11/23 Source: Developed by Drs. Thanh Campbell, Laura Hawthorne, Jose Alfredo Moreland and colleagues, with an educational karoline from [employer]. Physical exam (Primary Care) Vital Signs: Oxygen Delivery Method Room Air 09/11/23 08:29 Tobacco/Smoking Status: Tobacco use Status Tobacco use date assessed 09/11/23 09/11/23 08:30 Patient Tobacco Use Status Never used Tobacco 09/11/23 08:30 e-Cigarette/Vaping Use Never Used 09/11/23 08:30 Thrive Assessment: Date of Thrive Assessment Date Thrive assessed 01/18/23 09/11/23 08:30 Const General: alert; No acute distress Eyes Conjunctivae: conjunctivae normal Resp Auscultation: clear to auscultation bilaterally Cardio Rate: regular rate Rhythm: regular rhythm GI Inspection: Yes normal to inspection Extrem General: Yes normal to inspection and No edema Assessment and Plan Assessment & Plan (1) Obesity (BMI 30-39.9): Code(s): E66.9 - Obesity, unspecified Plan: Diet and exercise (2) GERD (gastroesophageal reflux disease): Code(s): K21.9 - Gastro-esophageal reflux disease without esophagitis Plan: Avoid the foods that causes that usually spicy foods, tomato products, juices, coffee, soda and foods that your sensitive to. After eating do not lie down, allow 3-4 hours before in lie down. And keep the head of bed above 30 degrees to avoid the acid from going up. (3) Hypertension: Code(s): I10 - Essential (primary) hypertension Qualifiers: Hypertension type: essential hypertension Qualified Code(s): I10 - Essential (primary) hypertension Plan: Continue with blood pressure medication. Decrease salt intake and exercise on lisinopril 5 mg once a day (4) Hypercholesterolemia: Code(s): E78.00 - Pure hypercholesterolemia, unspecified Plan: Avoid fried foods, chicken skin, eggs, butter margarine, pastries and meat. Be it pork or beef they have a lot of cholesterol LDL goal of less than 130 and triglyceride of less than 150. Patient just had blood work in May 2023. (5) Impaired glucose tolerance: Code(s): R73.02 - Impaired glucose tolerance (oral) Plan: Decrease the amount of carbohydrate intake, pasta, bread, rice and potatoes are all sugar and that is aside from all the sweet stuff, remember that fruits are good but they are Sweet also. (6) Hypogonadism: Plan: Patient follows up with urology placed on testosterone gel (7) Erectile dysfunction: Code(s): N52.9 - Male erectile dysfunction, unspecified Plan: Patient follows up with urology on tadalafil (8) Generalized anxiety disorder: Comment: Declined referral for counseling Code(s): F41.1 - Generalized anxiety disorder Plan: Continue with present medication (9) Bilateral hip pain: Comment: 2016 mild hip oa Code(s): M25.551 - Pain in right hip; M25.552 - Pain in left hip Plan: Patient has been advised to get a an x-ray of the hip, orthopedic referral done also and has been advised to get Voltaren gel to help with the pain. Orders: Orders XR hip BI w PEL1V Today M25.551 - Pain in right hip, M25.552 - Pain in left hip Referrals Orthopedics Referral M25.551 - Pain in right hip, M25.552 - Pain in left hip Medications: New diclofenac sodium 1% (Arthritis Pain (diclofenac)) apply to single knee, ankle, foot; for foot includes sole/toes/top of foot 4 grams topical QID 100 grams 2RF M25.551 - Pain in right hip, M25.552 - Pain in left hip Coding Level of Care Code Est Pt Level 4 (85011) Diagnoses Obesity (BMI 30-39.9) E66.9 GERD (gastroesophageal reflux disease) K21.9 Essential hypertension I10 Hypertension type: essential hypertension Hypercholesterolemia E78.00 Impaired glucose tolerance R73.02 Hypogonadism Erectile dysfunction N52.9 Generalized anxiety disorder F41.1 Bilateral hip pain M25.551; M25.552
== END 2023-09-11 09:02 | disposition home or self-care (01) ==
PROVIDERS: PCP Internal Medicine; Visit Provider Internal Medicine
DX: I10 Essential (primary) hypertension (principal); E66.9 Obesity, unspecified; Z68.37 Body mass index [BMI] 37.0-37.9, adult; K21.9 Gastro-esophageal reflux disease without esophagitis; E78.00 Pure hypercholesterolemia, unspecified; R73.02 Impaired glucose tolerance (oral); N52.9 Male erectile dysfunction, unspecified; F41.1 Generalized anxiety disorder; M25.551 Pain in right hip; M25.552 Pain in left hip
CPT/HCPCS: 99214

== ENCOUNTER 2023-09-11 09:07 | Outpatient (REF) | payer MEDICARE, MEDICAID, SELFPAY ==
--- NOTE | ~2023-09-11 | XR_ITS ---
EXAMINATION: XR BILATERAL HIPS WITH AP PELVIS CLINICAL INFORMATION: Hip pain COMPARISON: Radiographs 12/02/2015 TECHNIQUE: AP view of the pelvis and single views of each hip were obtained. FINDINGS: No acute fracture or dislocation. Hip and sacroiliac joint spaces are maintained. Degenerative disc disease in the visualized lumbosacral spine. Soft tissues are unremarkable. XR/XR hip BI w PEL1V IMPRESSION: 1. Degenerative disc disease in the visualized lumbosacral spine. 2. Hip and sacroiliac joint spaces are maintained.
== END 2023-09-11 09:08 | disposition home or self-care (01) ==
LOC: HO.XRAY 09:07
PROVIDERS: PCP Internal Medicine; Visit Provider Internal Medicine
DX: M25.551 Pain in right hip (principal); M25.552 Pain in left hip
CPT/HCPCS: 73521

== ENCOUNTER 2023-09-12 10:56 | Outpatient (AMB) | payer MEDICARE, MEDICAID, SELFPAY ==
--- NOTE | 2023-09-12 11:10 | MHC.OFFVIS ---
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 Patient reports that he has had hip pain for quite some time now, the left hip is worse than the right. He explains that his pain is felt as a stabbing pain. He does swimming and walking. 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 Her points to his SI joint when he describes where it hurts. No groin pain. He describes his pain as stabbing and occurs with activity. He says his pain has been present for some time now. He stays active with swimming & walking. [facility] Medical History Low testosterone Colon cancer screening Osteoarthritis of glenohumeral joint Biceps tendonitis on left Painful arc syndrome of left shoulder Tendinopathy of left shoulder History of OCD (obsessive compulsive disorder) Medicare annual wellness visit, initial Acute meniscal tear of knee Polyp of left ear canal Impaired glucose tolerance Vitamin D deficiency Hypercholesterolemia Hypertension Obesity (BMI 30-39.9) Anxiety and depression Degenerative disc disease, cervical GERD (gastroesophageal reflux disease) Surgical History History of esophagogastroduodenoscopy (EGD) Total knee replacement status History of appendectomy Family History Father Lung cancer Mother Leukemia Paternal Grandfather Myocardial infarction Son In good health Substance abuse Brother Substance abuse Social History Housing: Apartment Alcohol intake: current Alcohol intake frequency: does not drink Patient Tobacco Use Status: Never used Tobacco e-Cigarette/Vaping Use: Never Used Second Hand Smoke Exposure: No Current occupational status: 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 Cognitive needs: No Hearing needs: No Vision needs: Yes Review of Systems Const All systems reviewed & are unremarkable except as noted in HPI and below Physical Exam Vital Signs: BMI result Body Mass Index 33.0 Const General: no acute distress, alert and awake Orientation/consciousness: patient oriented x3 HEENT Head: Yes normocephalic and Yes atraumatic Eyes EOM: EOMs intact bilaterally Resp Effort & Inspection: normal respiratory effort and able to speak in complete sentences Cardio Jugular venous distension: no JVD Skin General skin exam: turgor normal Rashes: no rashes Neuro General: patient oriented x3 Extrem Other: No pain with hip ROM nl gait No greater troch tenderness Psych Appearance: grossly normal Affect: normal affect Attitude: cooperative Results Reviewed Results Reviewed: I personally reviewed relevant radiographs. Degenerative disc disease in the visualized lumbosacral spine. 2. Hip and sacroiliac joint spaces are maintained. Assessment & Plan Assessment & Plan (1) Lumbosacral pain: Code(s): M54.50 - Low back pain, unspecified Plan: Lumbosacral pain. No e/o hip pathology. Refer to non op spine. Plan Prepared for Randall Ann MD by Anjum Mann, medical record consultant, on 09/12/23 at 11:26 AM, EST. Orders: Referrals Pain Management Referral M54.50 - Low back pain, unspecified Coding Level of Care Code Est Pt Level 4 (12532) Diagnoses Lumbosacral pain M54.50
[2023-09-12 11:14] VITALS: BMI 33.0
== END 2023-09-12 11:32 | disposition home or self-care (01) ==
PROVIDERS: PCP Internal Medicine; Visit Provider Orthopaedic Surgery
DX: M54.50 Low back pain, unspecified (principal)
CPT/HCPCS: 99214

== ENCOUNTER → 2023-09-12 10:56 | Outpatient (BNVA) | payer MEDICARE, MEDICAID, SELFPAY | PROVIDERS: PCP Internal Medicine; Visit Provider Orthopaedic Surgery | DX: M54.50 Low back pain, unspecified (principal) | CPT/HCPCS: 99212 ==

== ENCOUNTER 2023-09-19 07:57 | Outpatient (REF) | payer MEDICARE, MEDICAID, SELFPAY ==
[2023-09-19 08:37] LABS: Hematocrit 49.8 % (42.0-52.0); Hemoglobin 16.7 g/dl (14.0-18.0); Mean Corpuscular HGB Conc 33.5 g/dl (31.0-36.0); Mean Corpuscular Volume 86.5 fL (80.0-98.0); Mean Platelet Volume 9.9 fL (9.4-12.4); Platelet Count 269 X10*3/uL (160-400); Red Blood Count 5.76 X10*6/uL (4.60-5.80); White Blood Count 4.9 X10*3/uL (4.8-10.8)
[2023-09-19 09:06] LABS: Alanine Aminotransferase 108 U/L (0-40); Albumin Level 4.6 g/dL (3.5-5.0); Alkaline Phosphatase 103 U/L (39-117); Aspartate Amino Transferase 60 U/L (5-37); Bilirubin Direct 0.3 mg/dL (0.0-0.5); Bilirubin Total 0.8 mg/dL (0.0-1.0); Total Protein 7.7 g/dL (6.5-8.0)
[2023-09-19 09:25] LABS: Prostate Specific Antigen 2.33 ng/mL (<0.05-4.0)
[2023-09-23 17:23] LABS: Testosterone, Total 165 ng/dL (250-1100)
== END 2023-09-19 07:58 | disposition home or self-care (01) ==
LOC: HO.LAB 07:57
PROVIDERS: PCP Internal Medicine; Referring Provider Internal Medicine; Visit Provider Urology
DX: Z12.5 Encounter for screening for malignant neoplasm of prostate (principal); R79.89 Other specified abnormal findings of blood chemistry; E29.1 Testicular hypofunction
CPT/HCPCS: 36415; 80076; 84153; 84403; 85027

== ENCOUNTER 2023-09-25 08:56 | Outpatient (AMB) | payer MEDICARE, MEDICAID, SELFPAY ==
[2023-09-25 09:22] VITALS: BP 146/78; PULSE 69; RESP 12; O2SAT 97; BMI 31.2
--- NOTE | 2023-09-25 09:22 | A.OFFVIS_ITS ---
Intake Vital Signs 09/25/23 09:22 Height 6 ft Weight 230 lb BMI 31.2 BP 146/78 H Blood Pressure Location Lt brachial Position Sitting Respiration 12 Pulse 69 Pulse Source Pulse Oximeter Pulse Oximetry (%) 97 Oxygen Delivery Method Room Air Intake Visit Reasons: Low Back Pain, Unspecified/CONFIRMED Allergies No Known Allergies [No Known Allergies*] Allergy (Verified 09/25/23 09:24) Medication List - Last Reconciled 09/25/23 by Jenna Burgess LPN buspirone 10 mg PO BID 90 days diclofenac sodium 1% (Arthritis Pain (diclofenac)) 4 grams topical QID lisinopril 5 mg PO DAILY lorazepam 1 mg PO BID PRN tadalafil 5 mg PO DAILY 90 days testosterone 1 packet transdermal QAM 30 days tramadol 50 mg PO QID PRN HPI Low Back Pain, Unspecified/CONFIRMED HPI Details 62-year-old male who presents today to t he office for evaluation of low back pain. He reports pain in his hip region. He has a limited ROM. He describes his pain as a stabbing pain. His pain score is up to 8-10/10 in intensity during his flare-up episodes. Movements make it worse. Bending the knee or bringing it up to chest level also makes it worse. Sometimes he has trouble sleeping at night. He has a history of arthritis in his hip region. He reports severe pain in his knee when bending the knee during swimming or a workout on the treadmill. He has been working for a [employer] company for the past 18 years. He has tried tramadol and topical diclofenac cream for pain. [facility] Medical History Low testosterone Colon cancer screening Osteoarthritis of glenohumeral joint Biceps tendonitis on left Painful arc syndrome of left shoulder Tendinopathy of left shoulder History of OCD (obsessive compulsive disorder) Medicare annual wellness visit, initial Acute meniscal tear of knee Polyp of left ear canal Impaired glucose tolerance Vitamin D deficiency Hypercholesterolemia Hypertension Obesity (BMI 30-39.9) Anxiety and depression Degenerative disc disease, cervical GERD (gastroesophageal reflux disease) Surgical History History of esophagogastroduodenoscopy (EGD) Total knee replacement status History of appendectomy Family History Father Lung cancer Mother Leukemia Paternal Grandfather Myocardial infarction Son In good health Substance abuse Brother Substance abuse Social History Housing: Apartment Alcohol intake: current Alcohol intake frequency: does not drink Patient Tobacco Use Status: Never used Tobacco e-Cigarette/Vaping Use: Never Used Second Hand Smoke Exposure: No Current occupational status: 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 Alert and oriented. Mood and affect appropriate. Follows and participates in conversation appropriately. Respiratory effort is unlabored. Able to transition from sit to stand unassisted. Hip ADALBERTO reproduces pain on the right-hand side. SI joint compression and distraction were positive. Results Reviewed Results Reviewed: 09/11/23: XR bilateral hips with AP pelvis FINDINGS: No acute fracture or dislocation. Hip and sacroiliac joint spaces are maintained. Degenerative disc disease in the visualized lumbosacral spine. Soft tissues are unremarkable. IMPRESSION: 1. Degenerative disc disease in the visualized lumbosacral spine. 2. Hip and sacroiliac joint spaces are maintained. Assessment & Plan Assessment & Plan (1) Lumbosacral pain: Code(s): M54.50 - Low back pain, unspecified (2) Sacroiliac joint pain: Code(s): M53.3 - Sacrococcygeal disorders, not elsewhere classified Plan Discussed proceeding with diagnostic test injections to assess the pain in his SI joint. We will schedule him for bilateral diagnostic SI joint injections. Discussed the risks and benefits of the procedure with the patient in detail. All questions were answered. The patient is on board with the plan. If the sacroiliac joint injections are not positive, we will consider MRI imaging of the lumbar spine. Justification for interventional therapy: ? Patient with average pain > 6/10 ? Patient has exhausted conservative therapy ? Patient unable to tolerate physical therapy due to pain. Scribed for Dr. Scott by Amanda Manzano, medical research scientist, on 09/25/2023. I, Dr. Scott, have personally reviewed and agree with the information entered by the scribe. Coding Level of Care Code New Pt Level 4 (77989) Diagnoses Lumbosacral pain M54.50 Sacroiliac joint pain M53.3
== END 2023-09-25 10:19 | disposition home or self-care (01) ==
LOC: HO.PMC 08:56
PROVIDERS: PCP Internal Medicine; Referring Provider Orthopaedic Surgery; Visit Provider Internal Medicine
DX: M54.50 Low back pain, unspecified (principal); M53.3 Sacrococcygeal disorders, not elsewhere classified
CPT/HCPCS: 99204

== ENCOUNTER → 2023-09-25 08:56 | Outpatient (BNVA) | payer MEDICARE, MEDICAID, SELFPAY | PROVIDERS: PCP Internal Medicine; Referring Provider Orthopaedic Surgery; Visit Provider Internal Medicine | DX: M54.50 Low back pain, unspecified (principal); M53.3 Sacrococcygeal disorders, not elsewhere classified | CPT/HCPCS: 99202 ==

== ENCOUNTER 2023-10-04 09:05 | Outpatient (AMB) | payer MEDICARE, MEDICAID, SELFPAY ==
--- NOTE | 2023-10-04 09:07 | A.OFFVIS_ITS ---
Intake Intake Visit Reasons: PSA/Testo(set) Intake Note: Patient presents today for a follow-up Meds- Tadalafil, Testosterone Allergies to Antibiotic- No Known Allergies Blood Thinner- None Rn Palliative Required: No Allergies No Known Allergies [No Known Allergies*] Allergy (Verified 10/04/23 09:08) Medication List - Last Reconciled 10/04/23 by Gianni Peñaloza MD buspirone 10 mg PO BID 90 days diclofenac sodium 1% (Arthritis Pain (diclofenac)) 4 grams topical QID lisinopril 5 mg PO DAILY lorazepam 1 mg PO BID PRN tadalafil 5 mg PO DAILY 90 days testosterone 1 packet transdermal QAM 30 days tramadol 50 mg PO QID PRN HPI HPI Comments History of Present Illness Details Krish is a pleasant male. He is a patient of Dr. Gary. He seen for the following urologic conditions - low testosterone - lower urinary tract symptoms Telemedicine Evaluation 15 min Consultation DoxSocialDefender Fabiano Video attempted Significant improvement in quality of life on testosterone Notices spontaneous erections on tadalafil Able to sleep through the night which has helped with energy Thinks that his depression has been resolved while stone testosterone therapy Will increase testosterone concentration to 5% Six-month follow-up lab work Hypogonadism He presents today for further evaluation of complaints regarding low testosterone Initial symptoms include decreased libido, increased fatigue, erectile dysfunction The onset of symptoms has been gradual Erectile status - nocturnal erections to occur but not comparable to sexual stimulation Erectile quality - erections are adequate for penetration - erections are not maintained until ejaculation Associate conditions include hypertension, dyslipidemia, chronic pain with medication Concominant Medications - buspirone Laboratory results baseline - 10/02 168, 09/03 T 206 F 37 FSH 7.5, 06/03 T 222 F 37, 10/05 T 165 Current therapy includes none. Prior therapy includes none Diagnosis based on history and laboratory results lab secondary to likely external medications suppression [facility] Medical History (Updated 10/04/23 @ 10:12 by Gianni Peñaloza MD) Low testosterone Hypogonadism Colon cancer screening Osteoarthritis of glenohumeral joint Biceps tendonitis on left Painful arc syndrome of left shoulder Tendinopathy of left shoulder History of OCD (obsessive compulsive disorder) Medicare annual wellness visit, initial Acute meniscal tear of knee Polyp of left ear canal Impaired glucose tolerance Vitamin D deficiency Hypercholesterolemia Hypertension Obesity (BMI 30-39.9) Anxiety and depression Degenerative disc disease, cervical GERD (gastroesophageal reflux disease) Surgical History History of esophagogastroduodenoscopy (EGD) Total knee replacement status History of appendectomy Family History Father Lung cancer Mother Leukemia Paternal Grandfather Myocardial infarction Son In good health Substance abuse Brother Substance abuse Social History Housing: Apartment Alcohol intake: current Alcohol intake frequency: does not drink Patient Tobacco Use Status: Never used Tobacco e-Cigarette/Vaping Use: Never Used Second Hand Smoke Exposure: No Current occupational status: 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 Cognitive needs: No Hearing needs: No Vision needs: Yes Review of Systems Const All systems reviewed & are unremarkable except as noted in HPI and below Reports no additional complaints Resp Reports no additional complaints GI Reports no additional complaints Reports as per HPI Musc Reports no additional complaints Physical Exam Telemedicine evaluation Appropriate responses Regular breathing rate and rhythm HEENT Head: Yes normal to inspection Ears: hearing grossly normal bilaterally Eyes General: appearance normal, both eyes and all related structures Neck Neck: Yes normal visual inspection Chest Chest palpation & inspection: normal inspection of the chest Resp Effort & Inspection: normal respiratory effort and able to speak in complete sentences Assessment & Plan Assessment & Plan (1) Low testosterone: Code(s): R79.89 - Other specified abnormal findings of blood chemistry (2) BPH w urinary obs/LUTS: Code(s): N40.1 - Benign prostatic hyperplasia with lower urinary tract symptoms; N13.8 - Other obstructive and reflux uropathy Plan Adjust testosterone dosing Six-month follow-up lab work Orders: Orders Prostate Specific Antigen 6 Months - Other specified abnormal findings of blood chemistry Testosterone, Total 6 Months - Other specified abnormal findings of blood chemistry Complete Blood Count no Diff 6 Months R79.89 - Other specified abnormal findings of blood chemistry Medications: Changed From testosterone 1 packet transdermal QAM 30 days 75 grams 5RF R79.89 - Other specified abnormal findings of blood chemistry To testosterone 1 packet transdermal QAM 150 grams 5RF 30 days R79.89 - Other specified abnormal findings of blood chemistry Refilled tadalafil 5 mg PO DAILY 90 tabs 1RF sexual activity 90 days N52.9 - Male erectile dysfunction, unspecified Patient Instructions: Imaging studies, laboratory and physical exam results were discussed and reviewed in detail. No major barriers to patient understanding were identified. An opportunity to ask questions regarding the treatment plan was provided. All questions were answered. The patient expressed understanding and agreement with the above treatment plan. The patient is aware they should contact our office by phone for worsening of their current condition or the appearance of new urologic symptoms. Compliance is encouraged with any medications and followup testing that is ordered. It is a privilege to participate in the urologic care of your patient. If you have any questions or concerns regarding treatment for the above conditions, or other urologic issues, please do not hesitate to contact me. The office telephone contact is [phone]. This note is constructed using voice recognition software. While every effort has been made to ensure accuracy stem sizer errors may have been included. Yours sincerely, Dr Gianni Peñaloza MD, [facility] - Urology Providers of Expert, Compassionate Care for the Genitourinary System Telehealth Telehealth Location of provider rendering services: practice address Location of patient: address on file Patient Identification confirmed using: Name, : Yes Telehealth method: video Patient verbally consented to treatment: Yes Patient verbally consented to billing insurance company: Yes Patient informed of any privacy concerns related to visit: Yes Coding Level of Care Code Tele Est Pt Level 4 (24812) Diagnoses Low testosterone R79.89 BPH w urinary obs/LUTS N40.1; N13.8
== END 2023-10-04 10:24 | disposition home or self-care (01) ==
PROVIDERS: PCP Internal Medicine; Visit Provider Urology
DX: R79.89 Other specified abnormal findings of blood chemistry (principal); N40.1 Benign prostatic hyperplasia with lower urinary tract symptoms; N13.8 Other obstructive and reflux uropathy
CPT/HCPCS: 99214

== ENCOUNTER → 2023-10-04 09:05 | Outpatient (BNVA) | payer MEDICARE, MEDICAID, SELFPAY | PROVIDERS: PCP Internal Medicine; Visit Provider Urology ==

== ENCOUNTER 2023-12-24 08:35 | Outpatient (AMB) | payer MEDICARE, MEDICAID, SELFPAY ==
--- NOTE | 2023-12-24 09:28 | A.OFFVIS_ITS ---
Intake Visit Reasons: Follow Up Intake Note: Patient is Present for Follow Up Urology Medication: Testosterone, Tadalafil Antibiotic Allergies: None Blood Thinners: None Allergies No Known Allergies [No Known Allergies*] Allergy (Verified 12/24/23 09:31) Medication List - Last Reconciled 12/24/23 by Gianni Peñaloza MD buspirone 10 mg PO BID 90 days diclofenac sodium 1% (Arthritis Pain (diclofenac)) 4 grams topical QID lisinopril 5 mg PO DAILY lorazepam 1 mg PO BID PRN tadalafil 5 mg PO DAILY 90 days testosterone 1 packet transdermal QAM 30 days tramadol 50 mg PO QID PRN HPI Comments Details: Krish is a pleasant male. He is a patient of Dr. Gary. He seen for the following urologic conditions - low testosterone - lower urinary tract symptoms Continued improvement in quality of life on testosterone Notices spontaneous erections on tadalafil So glad he started on testosterone Will increase testosterone concentration to 5% Six-month follow-up lab work Hypogonadism He presents today for further evaluation of complaints regarding low testosterone Initial symptoms include decreased libido, increased fatigue, erectile dysfunction The onset of symptoms has been gradual Erectile status - nocturnal erections to occur but not comparable to sexual stimulation Erectile quality - erections are adequate for penetration - erections are not maintained until ejaculation Associate conditions include hypertension, dyslipidemia, chronic pain with medication Concominant Medications - buspirone Laboratory results baseline - 10/02 168, 09/03 T 206 F 37 FSH 7.5, 06/03 T 222 F 37, 10/05 T 165 Current therapy includes none. Prior therapy includes none Diagnosis based on history and laboratory results lab secondary to likely external medications suppression [facility] Medical History Low testosterone Hypogonadism Colon cancer screening Osteoarthritis of glenohumeral joint Biceps tendonitis on left Painful arc syndrome of left shoulder Tendinopathy of left shoulder History of OCD (obsessive compulsive disorder) Medicare annual wellness visit, initial Acute meniscal tear of knee Polyp of left ear canal Impaired glucose tolerance Vitamin D deficiency Hypercholesterolemia Hypertension Obesity (BMI 30-39.9) Anxiety and depression Degenerative disc disease, cervical GERD (gastroesophageal reflux disease) Surgical History History of esophagogastroduodenoscopy (EGD) Total knee replacement status History of appendectomy Family History Father Lung cancer Mother Leukemia Paternal Grandfather Myocardial infarction Son In good health Substance abuse Brother Substance abuse Social History Housing: Apartment Alcohol intake: current Alcohol intake frequency: does not drink Patient Tobacco Use Status: Never used Tobacco e-Cigarette/Vaping Use: Never Used Second Hand Smoke Exposure: No Current occupational status: 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 Cognitive needs: No Hearing needs: No Vision needs: Yes Review of Systems Const Denies chills and Denies fever(s) Card Reports no additional complaints and Denies syncope Resp Denies cough GI Denies abdominal pain and Denies heartburn Reports as per HPI and Denies change in libido Neuro Denies syncope Psych Denies change in libido Endo Denies change in libido Physical Exam Const General: cooperative, healthy appearing, comfortable and no acute distress Orientation/consciousness: patient oriented x3 HEENT Face and sinus: Yes normal facial exam Mouth: moist mucous membranes Neck Neck: Yes normal visual inspection, Yes full ROM and Yes trachea midline Chest Chest palpation & inspection: normal inspection of the chest Resp Effort & Inspection: normal respiratory effort, able to speak in complete sentences and no respiratory distress GI Inspection: Yes normal to inspection Back/Spine/Pelvis Cervical Spine: normal cervical lordosis Thoracic/Lumbar Spine: thoracic and lumbar spine normal to inspection Skin General skin exam: no rashes or lesions noted Neuro General: patient oriented x3, gait normal, tone normal and moves all extremities Extrem General: Yes normal to inspection and Yes capillary refill normal Assessment & Plan Assessment & Plan (1) Low testosterone: Code(s): R7. - Other specified abnormal findings of blood chemistry Category: Medical (2) BPH w urinary obs/LUTS: Code(s): N40.1 - Benign prostatic hyperplasia with lower urinary tract symptoms; N13.8 - Other obstructive and reflux uropathy Category: Medical (3) Erectile dysfunction: Code(s): N52.9 - Male erectile dysfunction, unspecified Category: Medical Plan Six-month follow-up lab work Orders: Orders Prostate Specific Antigen 6 Months - Other specified abnormal findings of blood chemistry Testosterone, Total 6 Months R79.89 - Other specified abnormal findings of blood chemistry Complete Blood Count no Diff 6 Months R79.89 - Other specified abnormal findings of blood chemistry Patient Instructions: Imaging studies, laboratory and physical exam results were discussed and reviewed in detail. No major barriers to patient understanding were identified. An opportunity to ask questions regarding the treatment plan was provided. All questions were answered. The patient expressed understanding and agreement with the above treatment plan. The patient is aware they should contact our office by phone for worsening of their current condition or the appearance of new urologic symptoms. Compliance is encouraged with any medications and followup testing that is ordered. It is a privilege to participate in the urologic care of your patient. If you have any questions or concerns regarding treatment for the above conditions, or other urologic issues, please do not hesitate to contact me. The office telephone contact is [phone]. This note is constructed using voice recognition software. While every effort has been made to ensure accuracy fitness technician errors may have been included. Yours sincerely, Dr Gianni Peñaloza MD, [facility] - Urology Providers of Expert, Compassionate Care for the Genitourinary System Coding Level of Care Code Est Pt Level 4 (59583) Diagnoses Low testosterone R79.89 BPH w urinary obs/LUTS N40.1; N13.8 Erectile dysfunction N52.9
== END 2023-12-24 10:11 | disposition home or self-care (01) ==
PROVIDERS: PCP Internal Medicine; Visit Provider Urology
DX: R79.89 Other specified abnormal findings of blood chemistry (principal); N40.1 Benign prostatic hyperplasia with lower urinary tract symptoms; N13.8 Other obstructive and reflux uropathy; N52.9 Male erectile dysfunction, unspecified
CPT/HCPCS: 99214

== ENCOUNTER → 2023-12-24 08:35 | Outpatient (BNVA) | payer MEDICARE, MEDICAID, SELFPAY | PROVIDERS: PCP Internal Medicine; Visit Provider Urology | DX: N40.1 Benign prostatic hyperplasia with lower urinary tract symptoms (principal); N13.8 Other obstructive and reflux uropathy; N52.9 Male erectile dysfunction, unspecified; R79.89 Other specified abnormal findings of blood chemistry | CPT/HCPCS: 99212 ==

== ENCOUNTER 2023-12-27 07:54 | Outpatient (AMB) | payer MEDICARE, MEDICAID, SELFPAY ==
[2023-12-27 08:21] VITALS: BP 136/78; PULSE 58; O2SAT 98; BMI 31.5
--- NOTE | 2023-12-27 08:21 | MHC.PC.OV ---
Vital Signs 12/27/23 08:21 Height 6 ft Weight 232 lb BMI 31.5 BP 136/78 Blood Pressure Location Lt brachial Position Sitting Pulse 58 Pulse Source Pulse Oximeter Pulse Oximetry (%) 98 Oxygen Delivery Method Room Air Intake Visit Reasons: 3 month Allergies No Known Allergies [No Known Allergies*] Allergy (Verified 12/27/23 08:21) Tobacco use date assessed: 12/27/23 Fall risk assessment: No Falls in past year Last assessed Fall Risk: 12/27/23 Dental Screening Dental Screen Date: 12/27/23 Did you have a dental visit in the last 12 months?: Yes Did you have a dental problem in the last 6 months where you did not have access to dental care?: No Was dental information given to patient?: Patient has dentist HPI 3 month HPI Details 63-year-old obese male with hypertension hypercholesterolemia impaired glucose tolerance GERD generalized anxiety disorder coming in for follow-up. Last seen in August 2023. Review of the notes has seen urology for follow-up on testosterone and tadalafil patient has been followed up by pain management also for low back pain x-rays showing degenerative disc in the lumbosacral spine patient is set up for diagnostic tests injections noted in September having elevated liver function test of AST ALT 60/108 also noted elevated cholesterol to 134(May 2023) normal PSA low T. on tadalafil and Testosterone - for the lower back pain- held off injections for now.doing [facility] Medical History Low testosterone Hypogonadism Colon cancer screening Osteoarthritis of glenohumeral joint Biceps tendonitis on left Painful arc syndrome of left shoulder Tendinopathy of left shoulder History of OCD (obsessive compulsive disorder) Medicare annual wellness visit, initial Acute meniscal tear of knee Polyp of left ear canal Impaired glucose tolerance Vitamin D deficiency Hypercholesterolemia Hypertension Obesity (BMI 30-39.9) Anxiety and depression Degenerative disc disease, cervical GERD (gastroesophageal reflux disease) Surgical History History of esophagogastroduodenoscopy (EGD) Total knee replacement status History of appendectomy Family History Father Lung cancer Mother Leukemia Paternal Grandfather Myocardial infarction Son In good health Substance abuse Brother Substance abuse Social History (Reviewed 12/24/23 @ 09:31 by Celia Joiner [facility]) Housing: Apartment Alcohol intake: current Alcohol intake frequency: does not drink Patient Tobacco Use Status: Never used Tobacco e-Cigarette/Vaping Use: Never Used Second Hand Smoke Exposure: No Current occupational status: 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 1. Little interest or pleasure in doing things: not at all 2. Feeling down, depressed, or hopeless: not at all 3. Trouble falling or staying asleep, or sleeping too much: not at all 4. Feeling tired or having little energy: not at all 5. Poor appetite or overeating: not at all 6. Feeling bad about yourself - or that you are a failure or have let yourself or your family down: not at all 7. Trouble concentrating on things, such as reading the newspaper or watching television: not at all 8. Moving or speaking so slowly that other people could have noticed. Or the opposite - being so fidgety or restless that you have been moving around a lot more than usual: not at all 9. Thoughts that you would be better off or of hurting yourself in some way: not at all Total score: 0 Depression Screening Interpretation: Negative Depression Screening Done: Yes Source: Developed by Drs. Thanh Campbell, Laura Hawthorne, Jose Alfredo Moreland and colleagues, with an educational karoline from [employer]. Thrive Questionnaire Date Thrive assessed: 12/27/23 I am a: Patient What is your living situation today?: I have a steady place to live Within the past 12 months, did the food you bought not last and you didn't have the money to get more?: Never true Within the past 12 months, did you worry whether your food would run out before you got money to buy more?: Never true Do you have trouble paying for medicines?: No Do you have trouble getting transportation to medical appointments?: No Do you have trouble paying your heating and electricity bill?: No Do you have trouble taking care of your child, family member or friend?: No Do you have trouble with day-to-day activities such as bathing, preparing meals, shopping, managing finances, etc.?: No Are you currently unemployed and looking for a job?: No Are you interested in more education?: No Currently or been in a relationship where the following occur: no concerns reported THRIVE Score: 0 AUDIT C Alcohol Use Questionnaire (AUDIT-C) 1. How often do you have a drink containing alcohol?: Monthly or less 2. How many drinks containing alcohol do you have on a typical day when you are drinking?: 1 or 2 3. How often do you have six or more drinks on one occasion?: Never Total Score: 1 SUZANNE-7 AMB Questionnaire SUZANNE-7 Date SUZANNE - 7 assessed: 12/27/23 Feeling nervous, anxious, or on edge: 0 = Not at all Not being able to stop or control worryin = Not at all Worrying too much about different things: 0 = Not at all Trouble relaxin = Not at all Being so restless that it is hard to sit still: 0 = Not at all Becoming easily annoyed or irritable: 0 = Not at all Feeling afraid as if something awful might happen: 0 = Not at all Total SUZANNE-7 score (0-4 normal; 5-9 mild; 10-14 moderate; 15-21 severe): 0 Source: Developed by Drs. Thanh Campbell, Laura Hawthorne, Jose Alfredo Moreland and colleagues, with an educational karoline from [address]. Physical exam (Primary Care) Vital Signs: Last Vital Signs Pulse 58 12/27/23 08:21 BP 136/78 12/27/23 08:21 Pulse Ox 98 12/27/23 08:21 Oxygen Delivery Method Room Air 12/27/23 08:21 BMI result Body Mass Index 31.5 Tobacco/Smoking Status: Tobacco use Status Tobacco use date assessed 12/27/23 12/27/23 08:29 Patient Tobacco Use Status Never used Tobacco 12/27/23 08:29 e-Cigarette/Vaping Use Never Used 12/27/23 08:29 PHQ-9: PHQ-9 Score PHQ-9: Total score 0 12/27/23 08:29 Depression Screening Interpretation: Negative Thrive Assessment: Date of Thrive Assessment Date Thrive assessed 12/27/23 12/27/23 08:29 Currently or been in a relationship where the following occur: no concerns reported Const General: alert; No acute distress Eyes Conjunctivae: conjunctivae normal Resp Auscultation: clear to auscultation bilaterally Cardio Rate: regular rate Rhythm: regular rhythm GI Inspection: Yes normal to inspection Extrem General: Yes normal to inspection and No edema Assessment and Plan Assessment & Plan (1) Obesity (BMI 30-39.9): Code(s): E66.9 - Obesity, unspecified Plan: Diet and exercise (2) Hypertension: Code(s): I10 - Essential (primary) hypertension Qualifiers: Hypertension type: essential hypertension Qualified Code(s): I10 - Essential (primary) hypertension Plan: Continue with blood pressure medication. Decrease salt intake and exercise presently on lisinopril 5 mg once a day blood pressure is better (3) Hypercholesterolemia: Code(s): E78.00 - Pure hypercholesterolemia, unspecified Plan: Avoid fried foods, chicken skin, eggs, butter margarine, pastries and meat. Be it pork or beef they have a lot of cholesterol (4) Impaired glucose tolerance: Code(s): R73.02 - Impaired glucose tolerance (oral) Plan: Decrease the amount of carbohydrate intake, pasta, bread, rice and potatoes are all sugar and that is aside from all the sweet stuff, remember that fruits are good but they are Sweet also. (5) GERD (gastroesophageal reflux disease): Code(s): K21.9 - Gastro-esophageal reflux disease without esophagitis Plan: Avoid the foods that causes that usually spicy foods, tomato products, juices, coffee, soda and foods that your sensitive to. After eating do not lie down, allow 3-4 hours before in lie down. And keep the head of bed above 30 degrees to avoid the acid from going up. (6) Generalized anxiety disorder: Comment: Declined referral for counseling Code(s): F41.1 - Generalized anxiety disorder Plan: Continue with present medication (7) Low testosterone: Code(s): R79.89 - Other specified abnormal findings of blood chemistry Plan: Patient is being followed up by Urology and on testosterone (8) BPH w urinary obs/LUTS: Code(s): N40.1 - Benign prostatic hyperplasia with lower urinary tract symptoms; N13.8 - Other obstructive and reflux uropathy Plan: Continue with present Elavil (9) LFT elevation: Code(s): R7. - Other specified abnormal findings of blood chemistry Plan: repeat testing Orders: Orders Comprehensive Met. Panel Today - Other specified abnormal findings of blood chemistry Complete Blood Count Auto Diff Today - Other specified abnormal findings of blood chemistry Lipid Panel Today E78.00 - Pure hypercholesterolemia, unspecified, - Other specified abnormal findings of blood chemistry Thyroid Stimulating Hormone Today - Other specified abnormal findings of blood chemistry Free T4 (Free Thyroxine) Today - Other specified abnormal findings of blood chemistry Hepatitis B,C Profile Today - Other specified abnormal findings of blood chemistry US abdomen complete Today - Other specified abnormal findings of blood chemistry Hemoglobin A1c Today - Other specified abnormal findings of blood chemistry Coding Level of Care Code Est Pt Level 4 (32321) Diagnoses Obesity (BMI 30-39.9) E66.9 Essential hypertension I10 Hypertension type: essential hypertension Hypercholesterolemia E78.00 Impaired glucose tolerance R73.02 GERD (gastroesophageal reflux disease) K21.9 Generalized anxiety disorder F41.1 Low testosterone BPH w urinary obs/LUTS N40.1; N13.8 LFT elevation
== END 2023-12-27 08:57 | disposition home or self-care (01) ==
PROVIDERS: PCP Internal Medicine; Visit Provider Internal Medicine
DX: I10 Essential (primary) hypertension (principal); E66.9 Obesity, unspecified; E78.00 Pure hypercholesterolemia, unspecified; Z68.30 Body mass index [BMI] 30.0-30.9, adult; R73.02 Impaired glucose tolerance (oral); K21.9 Gastro-esophageal reflux disease without esophagitis; F41.1 Generalized anxiety disorder; R79.89 Other specified abnormal findings of blood chemistry; N40.1 Benign prostatic hyperplasia with lower urinary tract symptoms; N13.8 Other obstructive and reflux uropathy
CPT/HCPCS: 99214

== ENCOUNTER 2023-12-28 07:06 | Outpatient (REF) | payer MEDICARE, MEDICAID, SELFPAY ==
[2023-12-28 07:19] LABS: MANUAL DIFF FLAG NO
[2023-12-28 07:55] LABS: Basophils Absolute Auto 0.1 X10*3/uL (0.0-0.2); Basophils Percent Auto 0.8 % (0-2); Eosinophils Absolute Auto 0.1 X10*3/uL (0.0-0.4); Hematocrit 53.4 % (42.0-52.0); Hemoglobin 17.8 g/dl (14.0-18.0); Imm Gran Abs Auto 0.03 X10*3/uL (0.00-0.03); Imm Gran Pct Auto 0.5 % (0.0-0.4); Lymphocytes Absolute Auto 2.3 X10*3/uL (1.2-4.9); Lymphocytes Percent Auto 34.7 % (20-40); Mean Corpuscular HGB Conc 33.3 g/dl (31.0-36.0); Mean Corpuscular Hemoglobin 29.3 pg (27.0-33.0); Mean Corpuscular Volume 87.8 fL (80.0-98.0); Monocytes Absolute Auto 0.6 X10*3/uL (0.1-1.2); Monocytes Percent Auto 9.6 % (2-11); Neutrophils Absolute Auto 3.5 x10*3/uL (2.0-8.3); Neutrophils Percent Auto 52.4 % (45-73); Platelet Count 286 X10*3/uL (160-400); Red Blood Count 6.08 X10*6/uL (4.60-5.80); Red Cell Distribution Width 12.6 % (11.0-16.0); White Blood Count 6.6 X10*3/uL (4.8-10.8)
[2023-12-28 08:02] LABS: Estimated Average Glucose 117 mg/dL; Hemoglobin A1c % 5.7 % (<6.0)
[2023-12-28 08:57] LABS: Alanine Aminotransferase 16 U/L (0-40); Albumin Level 4.5 g/dL (3.5-5.0); Alkaline Phosphatase 51 U/L (39-117); Anion Gap 16 (12-20); Aspartate Amino Transferase 22 U/L (5-37); Bilirubin Total 0.8 mg/dL (0.0-1.0); Blood Urea Nitrogen 8 mg/dL (9-16); Calcium 9.5 mg/dL (8.4-10.2); Carbon Dioxide 28 mmol/L (22-29); Chloride 100 mmol/L (96-108); Cholesterol 192 mg/dL (<200); Estimated Glomerular Filt Rate > 60; Glucose Random 118 mg/dL (60-115); HDL Cholesterol 45 mg/dL (>40); LDL Cholesterol Calculated 125 mg/dL (<100); Potassium 4.6 mmol/L (3.3-5.1); Sodium 139 mmol/L (135-145); Total Protein 7.5 g/dL (6.5-8.0); Triglycerides 113 mg/dL (<150)
[2023-12-28 09:14] LABS: Free T4 (Free Thyroxine) 1.05 ng/dL (0.71-1.85); Thyroid Stimulating Hormone 1.48 uIU/mL (0.32-4.0)
[2023-12-28 10:37] LABS: HBS Num1 0.61 mIU/mL (0-7.99); HBc Num1 0.08 S/CO (0.00-0.79); HBsAGNum1 0.25 S/CO (0.00-0.99); Hepatitis B Core Antibody Nonreactive (Nonreactive); Hepatitis B Surface Antigen Negative (Negative); ~HepC Num1 0.09 S/CO (0.00-0.79); ~Hepatitis B Surface Antibody NONREACTIVE (Nonreactive); ~Hepatitis C Antibody Nonreactive (Nonreactive)
== END 2023-12-28 07:07 | disposition home or self-care (01) ==
LOC: HO.LAB 07:06
PROVIDERS: PCP Internal Medicine; Visit Provider Internal Medicine
DX: E78.00 Pure hypercholesterolemia, unspecified (principal); R79.89 Other specified abnormal findings of blood chemistry
CPT/HCPCS: 36415; 80053; 80061; 83036; 84439; 84443; 85025; 86704; 86706; 86803; 87340

== ENCOUNTER 2024-01-10 07:18 | Outpatient (REF) | payer MEDICARE, MEDICAID, SELFPAY ==
--- NOTE | ~2024-01-10 | US_ITS ---
EXAMINATION: US ABDOMEN COMPLETE CLINICAL INFORMATION: Other specified abnormal findings of blood chemistry. COMPARISON: CT abdomen and pelvis 07/27/2012. TECHNIQUE: Real-time imaging of the abdominal viscera. Limited visualization due to bowel gas. FINDINGS: PANCREAS: Poorly visualized. ABDOMINAL AORTA: Limited visualization. INFERIOR VENA CAVA: Visualized portions are normal. LIVER: Increased hepatic parenchymal heterogeneity and echogenicity could be associated with hepatocellular disease/hepatic steatosis and substantially limits visualization. Correlation with liver function tests and clinical exam recommended to determine further management. GALLBLADDER: No gallstones. No gallbladder wall thickening. COMMON BILE DUCT: Normal in caliber measuring 0.4 cm in diameter. RIGHT KIDNEY: No hydronephrosis. No renal calculi. Limited visualization. The kidney measures 10.4 cm in maximum dimension. LEFT KIDNEY: No hydronephrosis or renal calculi. Limited visualization. Left renal 0.6 cm mid pole cyst with benign features. There is no indication for follow-up imaging. The kidney measures 10.7 cm in maximum dimension. SPLEEN: The spleen measures 12.5 cm in maximum dimension. Borderline splenomegaly. FREE FLUID: None. US/US abdomen complete IMPRESSION: 1. Increased hepatic parenchymal heterogeneity and echogenicity could be associated with hepatocellular disease/hepatic steatosis and substantially limits visualization. Correlation with liver function tests and clinical exam recommended to determine further management. 2. Borderline splenomegaly.
== END 2024-01-10 07:19 | disposition home or self-care (01) ==
LOC: HO.US 07:18
PROVIDERS: PCP Internal Medicine; Visit Provider Internal Medicine
DX: R79.89 Other specified abnormal findings of blood chemistry (principal)
CPT/HCPCS: 76700

== ENCOUNTER 2024-03-25 06:22 | Outpatient (REF) | payer MEDICARE, MEDICAID, SELFPAY ==
[2024-03-25 07:11] LABS: Hematocrit 50.2 % (42.0-52.0); Hemoglobin 16.9 g/dl (14.0-18.0); Mean Corpuscular HGB Conc 33.7 g/dl (31.0-36.0); Mean Corpuscular Hemoglobin 29.3 pg (27.0-33.0); Mean Platelet Volume 10.1 fL (9.4-12.4); Platelet Count 241 X10*3/uL (160-400); Red Blood Count 5.77 X10*6/uL (4.60-5.80); Red Cell Distribution Width 13.3 % (11.0-16.0); White Blood Count 6.5 X10*3/uL (4.8-10.8)
[2024-03-25 07:59] LABS: Prostate Specific Antigen 2.51 ng/mL (<0.05-4.0)
[2024-04-01 01:19] LABS: Testosterone, Total 448 ng/dL (250-1100)
== END 2024-03-25 06:23 | disposition home or self-care (01) ==
LOC: HO.LAB 06:22
PROVIDERS: PCP Internal Medicine; Visit Provider Urology
DX: Z12.5 Encounter for screening for malignant neoplasm of prostate (principal); R79.89 Other specified abnormal findings of blood chemistry
CPT/HCPCS: 36415; 84153; 84403; 85027

== ENCOUNTER 2024-04-02 10:13 | Outpatient (AMB) | payer MEDICARE, MEDICAID, SELFPAY ==
--- NOTE | 2024-04-02 10:16 | MHC.OFFVIS ---
Intake Visit Reasons: 6M Follow Up-PSA/CBC/Testo(Testo pending) Intake Note: Patient is Present for Follow Up CBC/PSA/Testo Urology Medication: Testosterone, Tadalafil Antibiotic Allergies: None Blood Thinners: None Last PSA- 2.33 Data Collection Technician Required: No Accompanied by: Self / Same As Patient Allergies No Known Allergies [No Known Allergies*] Allergy (Verified 04/02/24 10:24) Medication List - Last Reconciled 04/02/24 by Gianni Peñaloza MD buspirone 10 mg PO BID 90 days diclofenac sodium 1% (Arthritis Pain (diclofenac)) 4 grams topical QID lisinopril 5 mg PO DAILY lorazepam 1 mg PO BID PRN tadalafil 5 mg PO DAILY 90 days testosterone 1 packet transdermal QAM 30 days tramadol 50 mg PO QID PRN HPI Comments Details: Krish is a pleasant male. He is a patient of Dr. Gary. He seen for the following urologic conditions - low testosterone - lower urinary tract symptoms Continue good response to testosterone Levels running over 400 Will continue with 1 packet daily Refill provided for tadalafil Hypogonadism He presents today for further evaluation of complaints regarding low testosterone Initial symptoms include decreased libido, increased fatigue, erectile dysfunction The onset of symptoms has been gradual Erectile status - nocturnal erections to occur but not comparable to sexual stimulation Erectile quality - erections are adequate for penetration - erections are not maintained until ejaculation Associate conditions include hypertension, dyslipidemia, chronic pain with medication Concominant Medications - buspirone Laboratory results baseline - 10/02 168, 09/03 T 206 F 37 FSH 7.5, 06/03 T 222 F 37, 10/05 T 165, 04/04 T 450 P 2.5 H 50 Current therapy includes none. Prior therapy includes none Diagnosis based on history and laboratory results lab secondary to likely external medications suppression [facility] Medical History (Updated 01/27/24 @ 09:20 by Fabio Gary MD) LFT elevation Low testosterone Hypogonadism Colon cancer screening Osteoarthritis of glenohumeral joint Biceps tendonitis on left Painful arc syndrome of left shoulder Tendinopathy of left shoulder History of OCD (obsessive compulsive disorder) Medicare annual wellness visit, initial Acute meniscal tear of knee Polyp of left ear canal Impaired glucose tolerance Vitamin D deficiency Hypercholesterolemia Hypertension Obesity (BMI 30-39.9) Anxiety and depression Degenerative disc disease, cervical GERD (gastroesophageal reflux disease) Surgical History History of esophagogastroduodenoscopy (EGD) Total knee replacement status History of appendectomy Family History Father Lung cancer Mother Leukemia Paternal Grandfather Myocardial infarction Son In good health Substance abuse Brother Substance abuse Social History Housing: Apartment Alcohol intake: current Alcohol intake frequency: does not drink Patient Tobacco Use Status: Never used Tobacco e-Cigarette/Vaping Use: Never Used Second Hand Smoke Exposure: No Current occupational status: 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 - Other specified abnormal findings of blood chemistry Category: Medical (2) BPH w urinary obs/LUTS: Code(s): N40.1 - Benign prostatic hyperplasia with lower urinary tract symptoms; N13.8 - Other obstructive and reflux uropathy Category: Medical (3) Erectile dysfunction: Code(s): N52.9 - Male erectile dysfunction, unspecified Category: Medical Plan 6 month follow-up labs Orders: Orders Prostate Specific Antigen 6 Months R7 - Other specified abnormal findings of blood chemistry Complete Blood Count no Diff 6 Months R7. - Other specified abnormal findings of blood chemistry Testosterone, Total 6 Months R7. - Other specified abnormal findings of blood chemistry Medications: Refilled testosterone 1 packet transdermal QAM 30 days 150 grams 5RF R7. - Other specified abnormal findings of blood chemistry tadalafil 5 mg PO DAILY 90 days 90 tabs 1RF sexual activity N52.9 - Male erectile dysfunction, unspecified Patient Instructions: Imaging studies, laboratory and physical exam results were discussed and reviewed in detail. No major barriers to patient understanding were identified. An opportunity to ask questions regarding the treatment plan was provided. All questions were answered. The patient expressed understanding and agreement with the above treatment plan. The patient is aware they should contact our office by phone for worsening of their current condition or the appearance of new urologic symptoms. Compliance is encouraged with any medications and followup testing that is ordered. It is a privilege to participate in the urologic care of your patient. If you have any questions or concerns regarding treatment for the above conditions, or other urologic issues, please do not hesitate to contact me. The office telephone contact is [phone]. This note is constructed using voice recognition software. While every effort has been made to ensure accuracy sales broker errors may have been included. Yours sincerely, Dr Gianni Peñaloza MD, [facility] - Urology Providers of Expert, Compassionate Care for the Genitourinary System Coding Level of Care Code Est Pt Level 4 (63696) Diagnoses Low testosterone R79.89 BPH w urinary obs/LUTS N40.1; N13.8 Erectile dysfunction N52.9
== END 2024-04-02 11:13 | disposition home or self-care (01) ==
PROVIDERS: PCP Internal Medicine; Visit Provider Urology
DX: R79.89 Other specified abnormal findings of blood chemistry (principal); N40.1 Benign prostatic hyperplasia with lower urinary tract symptoms; N13.8 Other obstructive and reflux uropathy; N52.9 Male erectile dysfunction, unspecified
CPT/HCPCS: 99214

== ENCOUNTER → 2024-04-02 10:13 | Outpatient (BNVA) | payer MEDICARE, MEDICAID, SELFPAY | PROVIDERS: PCP Internal Medicine; Visit Provider Urology | DX: E29.1 Testicular hypofunction (principal); R79.89 Other specified abnormal findings of blood chemistry; N40.1 Benign prostatic hyperplasia with lower urinary tract symptoms; N13.8 Other obstructive and reflux uropathy; N52.9 Male erectile dysfunction, unspecified | CPT/HCPCS: 99212 ==

== ENCOUNTER 2024-05-15 08:14 | Outpatient (AMB) | payer MEDICARE, MEDICAID, SELFPAY ==
[2024-05-15 08:31] VITALS: BP 136/74; PULSE 87; O2SAT 95; BMI 31.1
--- NOTE | 2024-05-15 08:31 | MHC.PC.OV ---
Vital Signs 05/15/24 08:31 Height 6 ft Weight 229 lb BMI 31.1 BP 136/74 Blood Pressure Location Lt brachial Position Sitting Pulse 87 Pulse Source Pulse Oximeter Pulse Oximetry (%) 95 Oxygen Delivery Method Room Air Intake Visit Reasons: SUZANNE, lft Intake Note: Pt here for refills, he stated his testosterone cream has been really helping him. Motor Tester Required: No Accompanied by: Self / Same As Patient Allergies No Known Allergies [No Known Allergies*] Allergy (Verified 05/15/24 08:36) Tobacco use date assessed: 12/27/23 Fall risk assessment: No Falls in past year Last assessed Fall Risk: 05/15/24 Dental Screening Dental Screen Date: 12/27/23 HPI SUZANNE, lft HPI Details 63-year-old obese male with impaired glucose tolerance GERD hypertension hypercholesterolemia hypogonadism generalized anxiety disorder BPH last seen in 12/30/2023. Patient had tubular adenoma last colonoscopy was 2020. Review of the notes has been follow-up with urology on testosterone and tadalafil . patient had an ultrasound done of the liver showing hepatic steatosis and borderline splenomegaly. Patient is feeling good after the testosterone treatment and still going on depression is better also. Discussed about the sugars being elevated patient states in a hurry because family pet is at home and wants to go home soon. Discussed about flu shot but declined and discussed also about the time for pneumonia shot. Patient will read up on it 1st. Otherwise blood pressure is actually controlled May last blood work needed refill for lorazepam for anxiety and discussed about taking it only as needed. [facility] Medical History (Updated 01/27/24 @ 09:20 by Fabio Gary MD) LFT elevation Low testosterone Hypogonadism Colon cancer screening Osteoarthritis of glenohumeral joint Biceps tendonitis on left Painful arc syndrome of left shoulder Tendinopathy of left shoulder History of OCD (obsessive compulsive disorder) Medicare annual wellness visit, initial Acute meniscal tear of knee Polyp of left ear canal Impaired glucose tolerance Vitamin D deficiency Hypercholesterolemia Hypertension Obesity (BMI 30-39.9) Anxiety and depression Degenerative disc disease, cervical GERD (gastroesophageal reflux disease) Surgical History History of esophagogastroduodenoscopy (EGD) Total knee replacement status History of appendectomy Family History Father Lung cancer Mother Leukemia Paternal Grandfather Myocardial infarction Son In good health Substance abuse Brother Substance abuse Social History Housing: Apartment Alcohol intake: current Alcohol intake frequency: does not drink Patient Tobacco Use Status: Never used Tobacco Tobacco use type: Cigarette e-Cigarette/Vaping Use: Never Used Second Hand Smoke Exposure: No Current occupational status: 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 1. Little interest or pleasure in doing things: not at all 2. Feeling down, depressed, or hopeless: not at all 3. Trouble falling or staying asleep, or sleeping too much: not at all 4. Feeling tired or having little energy: not at all 5. Poor appetite or overeating: not at all 6. Feeling bad about yourself - or that you are a failure or have let yourself or your family down: not at all 7. Trouble concentrating on things, such as reading the newspaper or watching television: not at all 8. Moving or speaking so slowly that other people could have noticed. Or the opposite - being so fidgety or restless that you have been moving around a lot more than usual: not at all 9. Thoughts that you would be better off or of hurting yourself in some way: not at all Total score: 0 Depression Screening Interpretation: Negative Depression Screening Done: Yes Source: Developed by Drs. Thanh Campbell, Laura Hawthorne, Jose Alfredo Moreland and colleagues, with an educational karoline from [employer]. Thrive Questionnaire Date Thrive assessed: 12/27/23 AUDIT C Alcohol Use Questionnaire (AUDIT-C) 1. How often do you have a drink containing alcohol?: Monthly or less 2. How many drinks containing alcohol do you have on a typical day when you are drinking?: 1 or 2 3. How often do you have six or more drinks on one occasion?: Never Total Score: 1 SUZANNE-7 AMB Questionnaire SUZANNE-7 Date SUZANNE - 7 assessed: 12/27/23 Source: Developed by Drs. Thanh L. ShannanLaura younger, Jose Alfredo Moreland and colleagues, with an educational karoline from [employer]. Physical exam (Primary Care) Vital Signs: Last Vital Signs Pulse 87 05/15/24 08:31 BP 136/74 05/15/24 08:31 Pulse Ox 95 05/15/24 08:31 Oxygen Delivery Method Room Air 05/15/24 08:31 BMI result Body Mass Index 31.1 Tobacco/Smoking Status: Tobacco use Status Tobacco use date assessed 12/27/23 05/15/24 08:36 Patient Tobacco Use Status Never used Tobacco 05/15/24 08:36 Tobacco use type Cigarette 05/15/24 08:36 e-Cigarette/Vaping Use Never Used 05/15/24 08:36 PHQ-9: PHQ-9 Score PHQ-9: Total score 0 05/15/24 08:36 Depression Screening Interpretation: Negative Thrive Assessment: Date of Thrive Assessment Date Thrive assessed 12/27/23 05/15/24 08:36 Const General: alert; No acute distress Eyes Conjunctivae: conjunctivae normal Resp Auscultation: clear to auscultation bilaterally Cardio Rate: regular rate Rhythm: regular rhythm GI Inspection: Yes normal to inspection Extrem General: Yes normal to inspection and No edema Coding Level of Care Code Est Pt Level 4 (27970) Diagnoses Hepatic steatosis K76.0 Low testosterone R79.89 Essential hypertension I10 Hypertension type: essential hypertension Hypercholesterolemia E78.00 Obesity (BMI 30-39.9) E66.9 GERD (gastroesophageal reflux disease) K21.9 Generalized anxiety disorder F41.1 Impaired glucose tolerance R73.02 Assessment & Plan Assessment & Plan (1) Hepatic steatosis: Comment: 01/2024 Code(s): K76.0 - Fatty (change of) liver, not elsewhere classified Category: Medical Plan: Low-fat diet and exercise (2) Low testosterone: Code(s): R79.89 - Other specified abnormal findings of blood chemistry Category: Medical Plan: Patient continues to follow-up with urology and on testosterone and tadalafil (3) Hypertension: Code(s): I10 - Essential (primary) hypertension Category: Medical Qualifiers: Hypertension type: essential hypertension Qualified Code(s): I10 - Essential (primary) hypertension Plan: Continue with blood pressure medication. Decrease salt intake and exercise takes lisinopril 5 mg once a day (4) Hypercholesterolemia: Code(s): E78.00 - Pure hypercholesterolemia, unspecified Category: Medical Plan: Avoid fried foods, chicken skin, eggs, butter margarine, pastries and meat. Be it pork or beef they have a lot of cholesterol LDL goal of less than 130 and triglyceride of less than 150. 12/2023 last blood work (5) Obesity (BMI 30-39.9): Code(s): E66.9 - Obesity, unspecified Category: Medical Plan: Continue with diet and exercise (6) GERD (gastroesophageal reflux disease): Code(s): K21.9 - Gastro-esophageal reflux disease without esophagitis Category: Medical Plan: Avoid the foods that causes that usually spicy foods, tomato products, juices, coffee, soda and foods that your sensitive to. After eating do not lie down, allow 3-4 hours before in lie down. And keep the head of bed above 30 degrees to avoid the acid from going up. (7) Generalized anxiety disorder: Comment: Declined referral for counseling Code(s): F41.1 - Generalized anxiety disorder Category: Medical Plan: Continue with present medication on buspirone and lorazepam p.r.n. (8) Impaired glucose tolerance: Code(s): R73.02 - Impaired glucose tolerance (oral) Category: Medical Plan: Decrease the amount of carbohydrate intake, pasta, bread, rice and potatoes are all sugar and that is aside from all the sweet stuff, remember that fruits are good but they are Sweet also. Medications: Refilled lorazepam 1 mg PO BID PRN 180 tabs 0RF agitation F32.9 - Major depressive disorder, single episode, unspecified, F41.9 - Anxiety disorder, unspecified
== END 2024-05-15 08:50 | disposition home or self-care (01) ==
PROVIDERS: PCP Internal Medicine; Visit Provider Internal Medicine
DX: I10 Essential (primary) hypertension (principal); E66.811 Obesity, class 1; Z68.30 Body mass index [BMI] 30.0-30.9, adult; K76.0 Fatty (change of) liver, not elsewhere classified; R79.89 Other specified abnormal findings of blood chemistry; E78.00 Pure hypercholesterolemia, unspecified; K21.9 Gastro-esophageal reflux disease without esophagitis; F41.1 Generalized anxiety disorder; R73.02 Impaired glucose tolerance (oral)

== ENCOUNTER → 2024-05-15 08:14 | Outpatient (BNVA) | payer MEDICARE, MEDICAID, SELFPAY | PROVIDERS: PCP Internal Medicine; Visit Provider Internal Medicine | DX: K76.0 Fatty (change of) liver, not elsewhere classified (principal); R79.89 Other specified abnormal findings of blood chemistry; I10 Essential (primary) hypertension; E78.00 Pure hypercholesterolemia, unspecified; E66.9 Obesity, unspecified; K21.9 Gastro-esophageal reflux disease without esophagitis; F41.1 Generalized anxiety disorder; R73.02 Impaired glucose tolerance (oral) | CPT/HCPCS: 99212 ==

== ENCOUNTER → 2024-09-04 08:04 | Outpatient (BNVA) | payer MEDICARE, MEDICAID, SELFPAY | PROVIDERS: PCP Internal Medicine; Visit Provider Internal Medicine | DX: I10 Essential (primary) hypertension (principal); E78.00 Pure hypercholesterolemia, unspecified; R73.02 Impaired glucose tolerance (oral); K21.9 Gastro-esophageal reflux disease without esophagitis; F41.1 Generalized anxiety disorder; N40.1 Benign prostatic hyperplasia with lower urinary tract symptoms; N13.8 Other obstructive and reflux uropathy; K76.0 Fatty (change of) liver, not elsewhere classified; H53.9 Unspecified visual disturbance | CPT/HCPCS: 99212 ==

== ENCOUNTER 2024-09-08 07:23 | Outpatient (REF) | payer MEDICARE, MEDICAID, SELFPAY ==
[2024-09-08 10:33] LABS: Hematocrit 51.3 % (42.0-52.0); Hemoglobin 17.7 g/dl (14.0-18.0); Mean Corpuscular HGB Conc 34.5 g/dl (31.0-36.0); Mean Corpuscular Hemoglobin 30.1 pg (27.0-33.0); Mean Corpuscular Volume 87.2 fL (80.0-98.0); Mean Platelet Volume 9.9 fL (9.4-12.4); Platelet Count 281 X10*3/uL (160-400); Red Blood Count 5.88 X10*6/uL (4.60-5.80); Red Cell Distribution Width 12.3 % (11.0-16.0); White Blood Count 5.8 X10*3/uL (4.8-10.8)
[2024-09-08 10:41] LABS: Estimated Average Glucose 117 mg/dL; Hemoglobin A1C 174.2694 umol/L; Hemoglobin A1c % 5.7 % (<6.0); Total Hemoglobin (HGBA1C) 4524.7096 umol/L
[2024-09-08 10:59] LABS: Prostate Specific Antigen 2.73 ng/mL (<0.05-4.0)
[2024-09-08 11:06] LABS: Alanine Aminotransferase 20 U/L (0-40); Albumin Level 4.5 g/dL (3.5-5.0); Alkaline Phosphatase 48 U/L (39-117); Anion Gap 9 (12-20); Aspartate Amino Transferase 26 U/L (5-37); Bilirubin Total 1.2 mg/dL (0.0-1.0); Blood Urea Nitrogen 10 mg/dL (9-16); Calcium 9.5 mg/dL (8.4-10.2); Carbon Dioxide 30 mmol/L (22-29); Chloride 103 mmol/L (96-108); Cholesterol 165 mg/dL (<200); Estimated Glomerular Filt Rate > 60; Glucose Random 116 mg/dL (60-115); HDL Cholesterol 45 mg/dL (>40); LDL Cholesterol Calculated 100 mg/dL (<100); Potassium 4.1 mmol/L (3.3-5.1); Sodium 138 mmol/L (135-145); Total Protein 7.6 g/dL (6.5-8.0); Triglycerides 102 mg/dL (<150)
[2024-09-08 11:27] LABS: Free T4 (Free Thyroxine) 1.13 ng/dL (0.71-1.85); Thyroid Stimulating Hormone 1.78 uIU/mL (0.32-4.0)
[2024-09-08 11:42] LABS: Folate 16.2 ng/mL (> or = 4.0); Vitamin B12 1085 pg/mL (200-900)
[2024-09-12 16:02] LABS: Testosterone, Total 138 ng/dL (250-1100)
== END 2024-09-08 07:24 | disposition home or self-care (01) ==
LOC: HO.10HDL 07:23
PROVIDERS: Internal Medicine; Visit Provider Urology
DX: R79.89 Other specified abnormal findings of blood chemistry (principal); R73.02 Impaired glucose tolerance (oral); E78.00 Pure hypercholesterolemia, unspecified; Z12.5 Encounter for screening for malignant neoplasm of prostate
CPT/HCPCS: 36415; 80053; 80061; 82607; 82746; 83036; 84153; 84403; 84439; 84443; 85027

== ENCOUNTER 2024-10-01 09:11 | Outpatient (AMB) | payer MEDICARE, MEDICAID, SELFPAY ==
--- NOTE | 2024-10-01 09:15 | MHC.OFFVIS ---
Intake Visit Reasons: 6M Labs(set) Intake Note: Patient is present for 6M LABS Urology Medication:TADALAFIL,TESTOSTERONE Antibiotic Allergy:NONE Blood Thinner:NONE Client Architect Required: No Allergies No Known Allergies [No Known Allergies*] Allergy (Verified 10/01/24 09:16) HPI Comments Details: Krish is a pleasant male. He is a patient of Dr. Gary. He seen for the following urologic conditions - low testosterone - lower urinary tract symptoms Telemedicine Evaluation 15 min Consultation [employer] Fabiano Video Continue good response to testosterone clinically Lab work testosterone was a little lower than expected Continue 1 packet date Refill provided for tadalafil Six-month follow-up office labs Hypogonadism He presents today for further evaluation of complaints regarding low testosterone Initial symptoms include decreased libido, increased fatigue, erectile dysfunction The onset of symptoms has been gradual Erectile status - nocturnal erections to occur but not comparable to sexual stimulation Erectile quality - erections are adequate for penetration - erections are not maintained until ejaculation Associate conditions include hypertension, dyslipidemia, chronic pain with medication Concominant Medications - buspirone Laboratory results baseline - 10/02 168, 09/03 T 206 F 37 FSH 7.5, 06/03 T 222 F 37, 10/05 T 165, 04/04 T 450 P 2.5 H 50, 09/05 T 138 2.7 Current therapy includes none. Prior therapy includes none Diagnosis based on history and laboratory results lab secondary to likely external medications suppression [facility] Medical History (Updated 09/04/24 @ 08:51 by Fabio Gary MD) LFT elevation Low testosterone Hypogonadism Colon cancer screening Osteoarthritis of glenohumeral joint Biceps tendonitis on left Painful arc syndrome of left shoulder Tendinopathy of left shoulder History of OCD (obsessive compulsive disorder) Medicare annual wellness visit, initial Acute meniscal tear of knee Polyp of left ear canal Impaired glucose tolerance Vitamin D deficiency Hypercholesterolemia Hypertension Obesity (BMI 30-39.9) Anxiety and depression Degenerative disc disease, cervical GERD (gastroesophageal reflux disease) Surgical History History of esophagogastroduodenoscopy (EGD) Total knee replacement status History of appendectomy Family History Father Lung cancer Mother Leukemia Paternal Grandfather Myocardial infarction Son In good health Substance abuse Brother Substance abuse Social History Housing: Apartment Alcohol intake: current Alcohol intake frequency: does not drink Patient Tobacco Use Status: Never used Tobacco Tobacco use type: Cigarette e-Cigarette/Vaping Use: Never Used Second Hand Smoke Exposure: No Current occupational status: 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 Cognitive needs: No Hearing needs: No Vision needs: Yes Review of Systems Const All systems reviewed & are unremarkable except as noted in HPI and below Reports no additional complaints Resp Reports no additional complaints GI Reports no additional complaints Reports as per HPI Musc Reports no additional complaints Physical Exam Telemedicine evaluation Appropriate responses Regular breathing rate and rhythm HEENT Head: Yes normal to inspection Ears: hearing grossly normal bilaterally Eyes General: appearance normal, both eyes and all related structures Neck Neck: Yes normal visual inspection Chest Chest palpation & inspection: normal inspection of the chest Resp Effort & Inspection: normal respiratory effort and able to speak in complete sentences Telehealth Telehealth Telehealth Platform: [employer] Location of provider rendering services: practice address Location of patient: address on file Patient Identification confirmed using: Name, : Yes Telehealth method: video Patient verbally consented to treatment: Yes Patient verbally consented to billing insurance company: Yes Patient informed of any privacy concerns related to visit: Yes Minutes spent on Phone/Video with Pt.: 15 Assessment & Plan Assessment & Plan (1) Erectile dysfunction: Code(s): N52.9 - Male erectile dysfunction, unspecified Category: Medical (2) BPH w urinary obs/LUTS: Code(s): N40.1 - Benign prostatic hyperplasia with lower urinary tract symptoms; N13.8 - Other obstructive and reflux uropathy Category: Medical (3) Low testosterone: Code(s): R7. - Other specified abnormal findings of blood chemistry Category: Medical Plan Refill medications Six-month follow-up lab Orders: Orders Prostate Specific Antigen 6 Months R7. - Other specified abnormal findings of blood chemistry Testosterone, Total 6 Months R7. - Other specified abnormal findings of blood chemistry Complete Blood Count no Diff 6 Months R7. - Other specified abnormal findings of blood chemistry Medications: Refilled tadalafil 5 mg PO DAILY 90 days 90 tabs 1RF sexual activity N52.9 - Male erectile dysfunction, unspecified testosterone 1 packet transdermal QAM 30 days 150 grams 5RF R79.89 - Other specified abnormal findings of blood chemistry Patient Instructions: This note is constructed using voice recognition software. While every effort has been made to ensure accuracy gantry rigger errors may have been included. Imaging studies, laboratory and physical exam results were discussed and reviewed in detail. No major barriers to patient understanding were identified. An opportunity to ask questions regarding the treatment plan was provided. All questions were answered. The patient expressed understanding and agreement with the above treatment plan. The patient is aware they should contact our office by phone for worsening of their current condition or the appearance of new urologic symptoms. Compliance is encouraged with any medications and followup testing that is ordered. It is a privilege to participate in the urologic care of your patient. If you have any questions or concerns regarding treatment for the above conditions, or other urologic issues, please do not hesitate to contact me. The office telephone contact is [phone]. Sincerely, Dr Gianni Peñaloza MD, [facility] - Urology Compassionate Specialist Care for the Genitourinary System Coding Level of Care Code Tele Est Pt Level 3 (66068) Complex EM visit Add On G2211 Diagnoses Erectile dysfunction N52.9 BPH w urinary obs/LUTS N40.1; N13.8 Low testosterone R79.89
--- OUTSIDE RECORDS SUMMARY | 2024-10-01 09:54 | XMS_ITS | Patient Health Record ---
Author Organization [facility] Address [address] [place] [address] Care Team Providers Care Eligibility Examiner Name Role Phone Fabio Gary MD Primary Care Provider Thanh Church [phone] ALLERGIES No Known Allergies REASON FOR REFERRAL No Information MEDICATIONS Medication SIG (Take, Route, Fr equency, Duration) Notes Start Date End Date Status busPIRone HCl 10 MG Oral for 90 Active traMADol HCl 50 MG TAKE 1 TABLET 4 TIME S A DAY NEEDED FOR PAIN Oral for 30 Acti ve Atenolol 100 MG as directed Oral Once a day Active LORazepam 1 MG as directed Oral Twice a day Active SOCIAL HISTORY Tobacco Use: Social History Observation Description Date Details (start date - stop date) Never Smoker NA - NA Sex Assigned At : Social History Observation Description Sex Assigned At Unknown Tobacco Use/Smoking Question Answer Notes Patient is a nonsmoker Alcohol Screen Question Answer Notes Did you have a drink containing alcohol in the p ast year? No Points 0 Interpretation Negative PROBLEMS Problem Type ICD Code Onset Dates Problem Status W/U Status Risk SNOMED Code Notes Problem History of colonic polyps (Z86.010) Active confirmed 204863868 Problem Encounter for screening for malignant neoplasm of colon (Z12.11) Active confirmed 512487835 Problem Preprocedural examination (Z01.818) Active confirmed 634778843752802 Problem Diverticulosis of colon (K57.30) Active confirmed Diverticulosi s of colon (106919150) PLAN OF TREATMENT Future Test Test Name Order Date COLONOSCOPY 03/09/2021 Insurance Providers Payer Name Payer Address Payer Phone Subscriber Number Group Number Insured Name Patient Relationship to Insured Coverage Start Date Coverage End Date MEDICARE OF [place] [address] [place] [id number] ALEXSANDRA NOVAK Self - patient is the insured MEDICAID OF [facility] [address] [place] [address] [id number] ALEXSANDRA NOVAK Self - patient is the insured MEDICAL (GENERAL) HISTORY Medical History History ICD Code Osteoarthritis hips and knee Hypertension Anxiety Denies DC,DM,CVA,Lung disease,renal dise ase Colonoscopy > 5 years ago wi th polyps removed---no records in [facility] Lock System EGD in 1999 with me-no Kimbrough's on biop sies-op note N/A Surgical History Surgery Date(Month/Year) Left knee replacement - Dr. Ann 2016 [place]
== END 2024-10-01 09:54 | disposition home or self-care (01) ==
LOC: HO.HUSH 09:11
PROVIDERS: PCP Internal Medicine; Visit Provider Urology
DX: N52.9 Male erectile dysfunction, unspecified (principal); N40.1 Benign prostatic hyperplasia with lower urinary tract symptoms; N13.8 Other obstructive and reflux uropathy; R79.89 Other specified abnormal findings of blood chemistry
CPT/HCPCS: 99213; G2211

== ENCOUNTER → 2024-10-01 09:11 | Outpatient (BNVA) | payer MEDICARE, MEDICAID, SELFPAY | PROVIDERS: PCP Internal Medicine; Visit Provider Urology ==

== ENCOUNTER 2024-12-08 08:24 | Outpatient (AMB) | payer MEDICARE, MEDICAID, SELFPAY ==
--- NOTE | 2024-12-08 08:40 | A.OFFPC_ITS ---
Vital Signs 12/08/24 08:42 Height 6 ft Weight 220 lb 8 oz BMI 29.9 BP 120/68 Blood Pressure Location Rt brachial Position Sitting Pulse 64 Pulse Source Pulse Oximeter Temp 97.5 F Temp Source Temporal Artery Scan Pulse Oximetry (%) 97 Oxygen Delivery Method Room Air Intake Visit Reasons: igt, SUZANNE Intake Note: Patient is here to follow up on IGT, SUZANNE. 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 Required: No Research Mechanic: Not Required per policy Accompanied by: Self / Same As Patient Allergies No Known Allergies [No Known Allergies*] Allergy (Verified 12/08/24 08:42) Tobacco use date assessed: 12/08/24 Fall risk assessment: No Falls in past year Last assessed Fall Risk: 12/08/24 Dental Screening Dental Screen Date: 09/04/24 [facility] Medical History (Updated 12/08/24 @ 08:59 by Fabio Gary MD) Obesity (BMI 30-39.9) LFT elevation Low testosterone Hypogonadism Colon cancer screening Osteoarthritis of glenohumeral joint Biceps tendonitis on left Painful arc syndrome of left shoulder Tendinopathy of left shoulder History of OCD (obsessive compulsive disorder) Medicare annual wellness visit, initial Acute meniscal tear of knee Polyp of left ear canal Impaired glucose tolerance Vitamin D deficiency Hypercholesterolemia Hypertension Anxiety and depression Degenerative disc disease, cervical GERD (gastroesophageal reflux disease) Surgical History History of esophagogastroduodenoscopy (EGD) Total knee replacement status History of appendectomy Family History Father Lung cancer Mother Leukemia Paternal Grandfather Myocardial infarction Son In good health Substance abuse Brother Substance abuse Social History Housing: Apartment Alcohol intake: current Alcohol intake frequency: does not drink Patient Tobacco Use Status: Never used Tobacco Tobacco use type: Cigarette e-Cigarette/Vaping Use: Never Used Second Hand Smoke Exposure: No service: No Current occupational status: 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 1. Little interest or pleasure in doing things: several days 2. Feeling down, depressed, or hopeless: more than half the days 3. Trouble falling or staying asleep, or sleeping too much: more than half the days 4. Feeling tired or having little energy: several days 5. Poor appetite or overeating: not at all 6. Feeling bad about yourself - or that you are a failure or have let yourself or your family down: several days 7. Trouble concentrating on things, such as reading the newspaper or watching television: several days 8. Moving or speaking so slowly that other people could have noticed. Or the opposite - being so fidgety or restless that you have been moving around a lot more than usual: several days 9. Thoughts that you would be better off or of hurting yourself in some way: not at all Total score: 9 Depression Screening Interpretation: Positive Depression Screening Done: Yes Source: Developed by Drs. Thanh Campbell, Laura Hawthorne, Jose Alfredo Moreland and colleagues, with an educational karoline from [employer]. Thrive Questionnaire Date Thrive assessed: 09/04/24 I am a: Patient What is your living situation today?: I have a steady place to live Within the past 12 months, did the food you bought not last and you didn't have the money to get more?: Often true Within the past 12 months, did you worry whether your food would run out before you got money to buy more?: Sometimes True Do you have trouble paying for medicines?: Yes Do you have trouble getting transportation to medical appointments?: No Do you have trouble paying your heating and electricity bill?: No Do you have trouble taking care of your child, family member or friend?: No Do you have trouble with day-to-day activities such as bathing, preparing meals, shopping, managing finances, etc.?: No Are you currently unemployed and looking for a job?: No Are you interested in more education?: No Please select the resources that you would like help with: Food and Paying for medicine Currently or been in a relationship where the following occur: No concerns reported THRIVE Score: 2 AUDIT C Alcohol Use Questionnaire (AUDIT-C) 1. How often do you have a drink containing alcohol?: Never Total Score: 0 SUZANNE-7 AMB Questionnaire SUZANNE-7 Date SUZANNE - 7 assessed: 12/08/24 Feeling nervous, anxious, or on edge: 2 = More than half the days Not being able to stop or control worryin = More than half the days Worrying too much about different things: 2 = More than half the days Trouble relaxin = More than half the days Being so restless that it is hard to sit still: 0 = Not at all Becoming easily annoyed or irritable: 0 = Not at all Feeling afraid as if something awful might happen: 2 = More than half the days Total SUZANNE-7 score (0-4 normal; 5-9 mild; 10-14 moderate; 15-21 severe): 10 Source: Developed by Drs. Thanh Campbell, Laura Hawthorne, Jose Alfredo Moreland and colleagues, with an educational karoline from [employer]. Physical exam (Primary Care) Vital Signs: Last Vital Signs Temp 97.5 F 12/08/24 08:42 Pulse 64 12/08/24 08:42 BP 120/68 12/08/24 08:42 Pulse Ox 97 12/08/24 08:42 Oxygen Delivery Method Room Air 12/08/24 08:42 BMI result Body Mass Index 29.9 Tobacco/Smoking Status: Tobacco use Status Tobacco use date assessed 12/08/24 12/08/24 08:46 Patient Tobacco Use Status Never used Tobacco 12/08/24 08:46 Tobacco use type Cigarette 12/08/24 08:46 e-Cigarette/Vaping Use Never Used 12/08/24 08:46 PHQ-9: PHQ-9 Score PHQ-9: Total score 9 12/08/24 08:59 Depression Screening Interpretation: Positive Thrive Assessment: Date of Thrive Assessment Date Thrive assessed 09/04/24 12/08/24 08:46 Currently or been in a relationship where the following occur: No concerns reported Const General: alert; No acute distress Eyes Conjunctivae: conjunctivae normal Resp Auscultation: clear to auscultation bilaterally Cardio Rate: regular rate Rhythm: regular rhythm GI Inspection: Yes normal to inspection Extrem General: Yes normal to inspection and No edema Coding Level of Care Code Est Pt Level 4 (36502) Complex EM visit Add On G2211 Diagnoses Hepatic steatosis K76.0 Impaired glucose tolerance R73.02 Essential hypertension I10 Hypertension type: essential hypertension Hypercholesterolemia E78.00 Overweight (BMI 25.0-29.9) E66.3 Assessment & Plan Assessment & Plan (1) Hepatic steatosis: Comment: 01/2024 Code(s): K76.0 - Fatty (change of) liver, not elsewhere classified Category: Medical Plan: Low-fat diet and exercise (2) Impaired glucose tolerance: Code(s): R73.02 - Impaired glucose tolerance (oral) Category: Medical Plan: Decrease the amount of carbohydrate intake, pasta, bread, rice and potatoes are all sugar and that is aside from all the sweet stuff, remember that fruits are good but they are Sweet also. (3) Hypertension: Code(s): I10 - Essential (primary) hypertension Category: Medical Qualifiers: Hypertension type: essential hypertension Qualified Code(s): I10 - Essential (primary) hypertension Plan: Continue with blood pressure medication. Decrease salt intake and exercise on lisinopril 5 mg once a day (4) Hypercholesterolemia: Code(s): E78.00 - Pure hypercholesterolemia, unspecified Category: Medical Plan: Avoid fried foods, chicken skin, eggs, butter margarine, pastries and meat. Be it pork or beef they have a lot of cholesterol LDL goal of less than 130 and triglyceride of less than 150 patient's last blood work is within normal limits (5) Overweight (BMI 25.0-29.9): Code(s): E66.3 - Overweight Category: Medical Plan: Diet and exercise Plan History of Present Illness The patient is a 64-year-old male presenting with hypertension management, impaired glucose tolerance monitoring, and follow-up on low testosterone levels. He has multiple chronic health conditions, including Gastroesophageal Reflux Disease (GERD), hypercholesterolemia, BPH, hypogonadism, and hepatic steatosis. During past visits, his management plan included a low-fat diet and exercise to help control glucose levels and blood pressure. He is using medication, specifically Lisinopril 5 mg daily, for hypertension. Recent laboratory results showed stable renal function with creatinine at 1.09 mg/dL, blood sugar of 116 mg/dL, and a hemoglobin A1c of 5.7%. The cholesterol level, notably LDL, stood at 100 mg/dL, with normal functioning of the liver, prostate, and thyroid. However, testosterone levels showed a significant decline from 448 to 138, despite the consistent use of testosterone cream. The patient experiences stress due to familial health concerns contributing to a broader picture of depression. As for vision care, he awaits an appointment that has not been followed up by the referral office. Health Maintenance - Following a low-fat diet and exercise regimen. - Monitoring blood sugar levels given the history of impaired glucose tolerance. - Regular blood pressure management with Lisinopril 5 mg daily. - LDL cholesterol management with a target of less than 130 mg/dL. - Up-to-date tetanus vaccination. 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 Social History - Reports increased stress and depression related to personal issues. - Adheres to a low-fat diet. - Incorporates regular walking as part of his exercise routine. - Notes weight management challenges. Review of Systems - General: Denies significant weight loss or gain; reports general wellbeing except stress. - Musculoskeletal: Reports shoulder discomfort related to handling a dog leash. - Neurological/Psychiatric: Reports depression; denies memory loss or confusion. - Endocrine: Reports consistent testosterone cream usage without notable improvement. - Eyes: Denies recent examination; awaiting follow-up on referral. Physical Exam Results - Labs: - Normal blood count with no anemia. - Creatinine stable at 1.09. - Blood sugar at 116. - Hemoglobin A1c at 5.7%. - Cholesterol LDL at 100 mg/dL. - Testosterone at 138. - Tests: Thyroid function normal, prostate function normal. Plan The management plan includes continuing Lisinopril 5 mg daily for hypertension. Monitoring impaired glucose tolerance through dietary and exercise interventions is emphasized alongside maintaining cholesterol levels with modifications for an LDL target under 130 mg/dL. Monitoring testosterone levels due to a recent decline, despite regular usage of testosterone cream, is also part of the management strategy. Continuing attention to stress management is advised, given the patient's depressive symptoms. Follow-up with the security team lead as soon as the referral appointment is arranged. Patient was informed and verbally consented to the use of an ambient scribe for clinic note documentation during this visit. Discussion Notes I discussed with the patient the ongoing management of his hypertension with Lisinopril 5 mg daily and emphasized the importance of dietary control in his impaired glucose tolerance. The significance of maintaining cholesterol levels was discussed with an LDL target under 130 mg/dL. We also addressed the concern over the recent decline in testosterone levels, examining adherence to testosterone cream and need for future monitoring. Discussions on stress management were crucial considering reported depression. I explained the necessity of follow-ups for monitoring and diagnostic purposes for his chronic conditions and urged him to ensure timely review with the security team lead once contact is made. We concluded with reviewing immediate lifestyle interventions to address current health priorities. Patient Instructions - Take Lisinopril 5 mg daily for blood pressure management. - Follow a low-fat diet and maintain regular exercise. - Keep an eye on blood sugar levels and monitor dietary intake. - Use testosterone cream daily as prescribed. - Engage in stress management techniques. - Contact the referred risk management specialist to schedule a vision examination. - Consistent follow-ups for monitoring labs and health changes. Orders: Orders Hemoglobin A1c 4 Months R73.02 - Impaired glucose tolerance (oral) Lipid Panel 4 Months E78.00 - Pure hypercholesterolemia, unspecified, R73.02 - Impaired glucose tolerance (oral) Comprehensive Met. Panel 4 Months R73.02 - Impaired glucose tolerance (oral)
[2024-12-08 08:42] VITALS: BP 120/68; PULSE 64; TEMP 36.4; O2SAT 97; BMI 29.9
== END 2024-12-08 09:09 | disposition home or self-care (01) ==
LOC: HO.HMCH 08:24
PROVIDERS: PCP Internal Medicine; Visit Provider Internal Medicine
DX: K76.0 Fatty (change of) liver, not elsewhere classified (principal); R73.02 Impaired glucose tolerance (oral); I10 Essential (primary) hypertension; E78.00 Pure hypercholesterolemia, unspecified; E66.3 Overweight

== ENCOUNTER → 2024-12-08 08:24 | Outpatient (BNVA) | payer MEDICARE, MEDICAID, SELFPAY | PROVIDERS: PCP Internal Medicine; Visit Provider Internal Medicine | DX: K76.0 Fatty (change of) liver, not elsewhere classified (principal); R73.02 Impaired glucose tolerance (oral); I10 Essential (primary) hypertension; E78.00 Pure hypercholesterolemia, unspecified; E66.3 Overweight; Z68.29 Body mass index [BMI] 29.0-29.9, adult; Z79.899 Other long term (current) drug therapy | CPT/HCPCS: 96127; 99212 ==

== ENCOUNTER 2025-03-19 06:03 | Outpatient (REF) | payer MEDICARE, MEDICAID, SELFPAY ==
--- OUTSIDE RECORDS SUMMARY | 2025-03-19 06:06 | XMS_ITS | Patient Health Record ---
Author Organization [facility] Address [address] [place] [address] Care Team Providers Care Treasury Associate Name Role Phone Fabio Gary MD Primary Care Provider Thanh Church [phone] Allergies No Known Allergies Reason For Referral No Information Medications Medication SIG (Take, Route, Fr equency, Duration) Notes Start Date End Date Status busPIRone HCl 10 MG Oral for 90 Active traMADol HCl 50 MG TAKE 1 TABLET 4 TIME S A DAY NEEDED FOR PAIN Oral for 30 Acti ve Atenolol 100 MG as directed Oral Once a day Active LORazepam 1 MG as directed Oral Twice a day Active Social History Tobacco Use: Social History Observation Description Date Details (start date - stop date) Never Smoker NA - NA Tobacco Use/Smoking Question Answer Notes Patient is a nonsmoker Alcohol Screen Question Answer Notes Did you have a drink containing alcohol in the p ast year? No Points 0 Interpretation Negative Section Notes: Quit EtOH 2 years ago year 2 019, nonsmoker Problems Problem Type SNOMED Code ICD Code Onset Dates Problem Status W/U Status Risk Notes Problem 701129216 Encounter for screening for malignant neoplasm of colon (Z12.11) Active confirmed Problem 303090493275493 Preprocedural examination (Z01.818) Active confirmed Problem 088982818 History of colonic polyps (Z86.010) Active confirmed Problem Diverticulosis of colon (219936363) Diverticulosis of colon (K57.30) Active confirmed Plan Of Treatment Future Test Test Name Order Date COLONOSCOPY 03/09/2021 Insurance Providers Payer Name Payer Address Payer Phone Subscriber Number Group Number Insured Name Patient Relationship to Insured Coverage Start Date Coverage End Date MEDICARE OF [place] [address] [place] [id number] [phone] [id number] ALEXSANDRA NOVAK Self - patient is the insured MEDICAID OF [facility] [address] [place] [phone] [id number] ALEXSANDRA NOVAK Self - patient is the insured Medical (General) History Medical History History ICD Code Osteoarthritis hips and knee Hypertension Anxiety Denies LA,DM,CVA,Lung disease,renal dise ase Colonoscopy > 5 years ago wi th polyps removed---no records in [facility] EGD in 1999 with me-no Kimbrough's on biop sies-op note N/A Surgical History Surgery Date(Month/Year) Left knee replacement - Dr. Ann 2016 [facility]
[2025-03-19 07:34] LABS: Hematocrit 52.0 % (42.0-52.0); Hemoglobin 17.3 g/dl (14.0-18.0); Mean Corpuscular HGB Conc 33.3 g/dl (31.0-36.0); Mean Corpuscular Hemoglobin 29.7 pg (27.0-33.0); Mean Corpuscular Volume 89.2 fL (80.0-98.0); NRBC Abs Auto 0.000 X10*3/uL (0.0-0.012); NRBC Pct Auto 0.0 /100WBC (0.0-0.2); Platelet Count 253 X10*3/uL (160-400); Red Blood Count 5.83 X10*6/uL (4.60-5.80); White Blood Count 5.7 X10*3/uL (4.8-10.8)
[2025-03-19 07:44] LABS: Hemoglobin A1C 175.4994 umol/L; Total Hemoglobin (HGBA1C) 4506.6154 umol/L
[2025-03-19 08:05] LABS: Alanine Aminotransferase 27 U/L (0-40); Albumin Level 4.5 g/dL (3.5-5.0); Anion Gap 12 (12-20); Aspartate Amino Transferase 44 U/L (5-37); Blood Urea Nitrogen 6 mg/dL (9-16); Calcium 9.3 mg/dL (8.4-10.2); Carbon Dioxide 31 mmol/L (22-29); Chloride 103 mmol/L (96-108); Cholesterol 178 mg/dL (<200); Estimated Glomerular Filt Rate > 60; HDL Cholesterol 44 mg/dL (>40); Potassium 4.5 mmol/L (3.3-5.1); Sodium 141 mmol/L (135-145); Total Protein 6.9 g/dL (6.5-8.0); Triglycerides 165 mg/dL (<150)
[2025-03-19 08:13] LABS: Alkaline Phosphatase 48 U/L (39-117)
[2025-03-19 08:17] LABS: Prostate Specific Antigen 3.91 ng/mL (<0.05-4.0)
== END 2025-03-19 06:04 | disposition home or self-care (01) ==
LOC: HO.LAB 06:03
PROVIDERS: Absent Provider Internal Medicine; PCP Internal Medicine; Visit Provider Urology
DX: Z12.5 Encounter for screening for malignant neoplasm of prostate (principal); R79.89 Other specified abnormal findings of blood chemistry; E78.00 Pure hypercholesterolemia, unspecified; R73.02 Impaired glucose tolerance (oral)
CPT/HCPCS: 36415; 80053; 80061; 83036; 84153; 84403; 85027

== ENCOUNTER 2025-04-01 08:05 | Outpatient (AMB) | payer MEDICARE, MEDICAID, SELFPAY ==
--- NOTE | 2025-04-01 08:14 | MHC.PC.OV ---
Vital Signs 04/01/25 08:15 Height 6 ft Weight 225 lb BMI 30.5 BP 112/64 Blood Pressure Location Rt brachial Position Sitting Pulse 74 Pulse Source Pulse Oximeter Temp 97.3 F Temp Source Temporal Artery Scan Pulse Oximetry (%) 97 Oxygen Delivery Method Room Air Intake Visit Reasons: IGT and hypogonadism Intake Note: Patient is here to follow up on IGT, Hypogonadism. Specialist Physician Required: No Senior Tableau Developer: Not Required per policy Accompanied by: Self / Same As Patient Allergies No Known Allergies (No Known Allergies*) Allergy (Verified 04/01/25 08:15) Tobacco use date assessed: 04/01/25 Fall risk assessment: No Falls in past year Last assessed Fall Risk: 04/01/25 Dental Screening Dental Screen Date: 09/04/24 [facility] Medical History (Updated 04/01/25 @ 09:02 by Fabio Gary MD) Obesity (BMI 30-39.9) LFT elevation Low testosterone Hypogonadism Colon cancer screening Osteoarthritis of glenohumeral joint Biceps tendonitis on left Painful arc syndrome of left shoulder Tendinopathy of left shoulder History of OCD (obsessive compulsive disorder) Medicare annual wellness visit, initial Acute meniscal tear of knee Polyp of left ear canal Impaired glucose tolerance Vitamin D deficiency Hypercholesterolemia Hypertension Anxiety and depression Degenerative disc disease, cervical GERD (gastroesophageal reflux disease) Surgical History History of esophagogastroduodenoscopy (EGD) Total knee replacement status History of appendectomy Family History Father Lung cancer Mother Leukemia Paternal Grandfather Myocardial infarction Son In good health Substance abuse Brother Substance abuse Social History Housing: Apartment Alcohol intake: current Alcohol intake frequency: does not drink Patient Tobacco Use Status: Never used Tobacco Tobacco use type: Cigarette e-Cigarette/Vaping Use: Never Used Second Hand Smoke Exposure: No service: No Current occupational status: 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 Cognitive needs: No Hearing needs: No Vision needs: Yes Questionnaire Thrive Questionnaire Date Thrive assessed: 12/08/24 I am a: Patient What is your living situation today?: I have a steady place to live Within the past 12 months, did the food you bought not last and you didn't have the money to get more?: Often true Within the past 12 months, did you worry whether your food would run out before you got money to buy more?: Sometimes True Do you have trouble paying for medicines?: Yes Do you have trouble getting transportation to medical appointments?: No Do you have trouble paying your heating and electricity bill?: No Do you have trouble taking care of your child, family member or friend?: No Do you have trouble with day-to-day activities such as bathing, preparing meals, shopping, managing finances, etc.?: No Are you currently unemployed and looking for a job?: No Are you interested in more education?: No Currently or been in a relationship where the following occur: No concerns reported THRIVE Score: 2 SUZANNE-7 AMB Questionnaire SUZANNE-7 Date SUZANNE - 7 assessed: 12/08/24 Source: Developed by Drs. Thanh Campbell, Laura Hawthorne, Jose Alfredo Moreland and colleagues, with an educational karoline from [employer]. Physical exam (Primary Care) Vital Signs: Last Vital Signs Temp 97.3 F 04/01/25 08:15 Pulse 74 04/01/25 08:15 BP 112/64 04/01/25 08:15 Pulse Ox 97 04/01/25 08:15 Oxygen Delivery Method Room Air 04/01/25 08:15 BMI result Body Mass Index 30.5 Tobacco/Smoking Status: Tobacco use Status Tobacco use date assessed 04/01/25 04/01/25 08:20 Patient Tobacco Use Status Never used Tobacco 04/01/25 08:20 Tobacco use type Cigarette 04/01/25 08:20 e-Cigarette/Vaping Use Never Used 04/01/25 08:20 Thrive Assessment: Date of Thrive Assessment Date Thrive assessed 12/08/24 04/01/25 08:20 Currently or been in a relationship where the following occur: No concerns reported Const General: alert; No acute distress Eyes Conjunctivae: conjunctivae normal Resp Auscultation: clear to auscultation bilaterally Cardio Rate: regular rate Rhythm: regular rhythm GI Inspection: Yes normal to inspection Extrem General: Yes normal to inspection and No edema Coding Level of Care Code Est Pt Level 4 (20509) Complex EM visit Add On G2211 Diagnoses Essential hypertension I10 Hypertension type: essential hypertension Hypercholesterolemia E78.00 Impaired glucose tolerance R73.02 Obesity (BMI 30.0-34.9) E66.811 Gastroesophageal reflux disease without esophagitis K21.9 Esophagitis presence: without esophagitis Hepatic steatosis K76.0 Generalized anxiety disorder F41.1 Low testosterone R79.89 Trigger finger of right hand M65.30 Assessment & Plan Assessment & Plan (1) Hypertension: Code(s): I10 - Essential (primary) hypertension Category: Medical Qualifiers: Hypertension type: essential hypertension Qualified Code(s): I10 - Essential (primary) hypertension Plan: Continue with blood pressure medication. Decrease salt intake and exercise patient on lisinopril 5 mg once a day (2) Hypercholesterolemia: Code(s): E78.00 - Pure hypercholesterolemia, unspecified Category: Medical Plan: Avoid fried foods, chicken skin, eggs, butter margarine, pastries and meat. Be it pork or beef they have a lot of cholesterol LDL goal of less than 130 and triglyceride of less than 150. Patient on diet (3) Impaired glucose tolerance: Code(s): R73.02 - Impaired glucose tolerance (oral) Category: Medical Plan: Decrease the amount of carbohydrate intake, pasta, bread, rice and potatoes are all sugar and that is aside from all the sweet stuff, remember that fruits are good but they are Sweet also. (4) Obesity (BMI 30.0-34.9): Code(s): E66.811 - Obesity, class 1 Category: Medical Plan: Diet and exercise (5) GERD (gastroesophageal reflux disease): Code(s): K21.9 - Gastro-esophageal reflux disease without esophagitis Category: Medical Qualifiers: Esophagitis presence: without esophagitis Qualified Code(s): K21.9 - Gastro-esophageal reflux disease without esophagitis Plan: Avoid the foods that causes that usually spicy foods, tomato products, juices, coffee, soda and foods that your sensitive to. After eating do not lie down, allow 3-4 hours before in lie down. And keep the head of bed above 30 degrees to avoid the acid from going up. (6) Hepatic steatosis: Comment: 01/2024 Code(s): K76.0 - Fatty (change of) liver, not elsewhere classified Category: Medical Plan: Low-fat diet and exercise (7) Generalized anxiety disorder: Comment: Declined referral for counseling Code(s): F41.1 - Generalized anxiety disorder Category: Medical Plan: Continue with present medication as needed (8) Low testosterone: Code(s): R79.89 - Other specified abnormal findings of blood chemistry Category: Medical Plan: On testosterone presently doing good testosterone is up (9) Trigger finger of right hand: Code(s): M65.30 - Trigger finger, unspecified finger Category: Medical Plan History of Present Illness The patient is a 64-year-old male presenting for a follow-up visit to manage multiple chronic conditions including obesity, GERD, cervical degenerative disc disease, hypertension, hypercholesterolemia, anxiety disorder, BPH, and hepatic steatosis. The patient has a history of obesity with a recent weight gain noted, increasing his BMI to 30. He is attempting to manage his weight through exercise, including walking three miles a day and swimming, although he reports difficulty with weight lifting due to arthritis. The patient has been diagnosed with GERD and is currently managing it with a low-fat diet and exercise. He reports that his current medication regimen is effective in controlling symptoms. Cervical degenerative disc disease is present, contributing to his difficulty with certain physical activities. Hypertension is being managed with lisinopril 5 mg daily, and the patient is advised to maintain a low-sodium diet. Hypercholesterolemia is being managed with dietary modifications, aiming for an LDL goal of less than 130 mg/dL and triglycerides less than 150 mg/dL. Recent lab results show an LDL of 101 mg/dL and triglycerides of 165 mg/dL. The patient has a history of anxiety disorder, which is currently stable. Benign prostatic hyperplasia is being monitored, with prostate-specific antigen levels remaining stable. Hepatic steatosis was confirmed via an abdominal ultrasound in 2023, and liver function tests show mild elevation, which is consistent with previous results. The patient denies alcohol consumption for the past six years, and lifestyle modifications are being emphasized for management. The patient exhibits hyperglycemia with a fasting blood sugar of 109 mg/dL and a hemoglobin A1c of 5.7%, indicating borderline glycemic control. He has made dietary changes, eliminating sugar and alcohol, to manage his blood glucose levels. 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 Conservative management with splinting is being considered. 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, contributing to trigger finger Review of Systems - Cardiovascular: Denies chest pain or palpitations - Gastrointestinal: Reports GERD, managed with diet and medication - Musculoskeletal: Reports trigger finger on the right side - Genitourinary: Denies dysuria or urinary frequency Physical Exam Results - Labs: Normal blood count, no anemia, normal electrolytes, stable renal function, fasting blood sugar 109 mg/dL, hemoglobin A1c 5.7%, LDL 101 mg/dL, triglycerides 165 mg/dL - Imaging: Abdominal ultrasound in 2023 showed hepatic steatosis Plan The management plan for the patient's hypertension includes continuing lisinopril 5 mg daily and maintaining a low-sodium diet to control blood pressure levels. For hypercholesterolemia, the patient is advised to adhere to dietary modifications with a target LDL of less than 130 mg/dL and triglycerides less than 150 mg/dL. The patient's GERD is being managed with a low-fat diet and exercise, and he is advised to continue his current medication regimen as needed. For hepatic steatosis, lifestyle modifications including a healthy diet and regular exercise are emphasized. The patient is encouraged to maintain his current exercise routine, which includes walking and swimming, to manage obesity and improve overall health. For the trigger finger, conservative management with splinting is recommended, and referral to orthopedics for further evaluation may be considered if symptoms persist. Preventative care includes scheduling a colonoscopy for next year and considering the shingles vaccine, which is available at the pharmacy. Patient was informed and verbally consented to the use of an ambient scribe for clinic note documentation during this visit. Discussion Notes During the visit, we discussed the management of hypertension with lisinopril and dietary changes to control blood pressure. We also reviewed the importance of dietary modifications for managing hypercholesterolemia and maintaining target lipid levels. The patient was advised to continue his current regimen for GERD and to focus on lifestyle changes for hepatic steatosis. We discussed the benefits of regular exercise and a healthy diet in managing obesity and overall health. For the trigger finger, conservative management options were discussed, and a referral to orthopedics may be considered if necessary. Preventative care measures, including scheduling a colonoscopy and considering the shingles vaccine, were also reviewed. Patient Instructions - Continue taking lisinopril 5 mg daily for blood pressure management. - Follow a low-sodium diet to help control blood pressure. - Maintain dietary modifications to manage cholesterol levels, aiming for LDL less than 130 mg/dL and triglycerides less than 150 mg/dL. - Continue current GERD medication as needed and adhere to a low-fat diet. - Engage in regular exercise, including walking and swimming, to manage weight and improve health. - Consider using a splint for the trigger finger and monitor symptoms. - Schedule a colonoscopy for next year and consider getting the shingles vaccine at the pharmacy.
[2025-04-01 08:15] VITALS: BP 112/64; PULSE 74; TEMP 36.3; O2SAT 97; BMI 30.5
== END 2025-04-01 09:05 | disposition home or self-care (01) ==
LOC: HO.HMCH 08:06
PROVIDERS: PCP Internal Medicine; Visit Provider Internal Medicine
DX: I10 Essential (primary) hypertension (principal); E78.00 Pure hypercholesterolemia, unspecified; E66.811 Obesity, class 1; Z68.30 Body mass index [BMI] 30.0-30.9, adult; R73.02 Impaired glucose tolerance (oral); K21.9 Gastro-esophageal reflux disease without esophagitis; K76.0 Fatty (change of) liver, not elsewhere classified; M65.311 Trigger thumb, right thumb; F41.1 Generalized anxiety disorder; R79.89 Other specified abnormal findings of blood chemistry

== ENCOUNTER → 2025-04-01 08:05 | Outpatient (BNVA) | payer MEDICARE, MEDICAID, SELFPAY | PROVIDERS: PCP Internal Medicine; Visit Provider Internal Medicine | DX: R68.82 Decreased libido (principal); E03.9 Hypothyroidism, unspecified; I10 Essential (primary) hypertension; R53.83 Other fatigue; N52.9 Male erectile dysfunction, unspecified; E29.1 Testicular hypofunction; R79.89 Other specified abnormal findings of blood chemistry; R73.02 Impaired glucose tolerance (oral); E66.811 Obesity, class 1; K21.9 Gastro-esophageal reflux disease without esophagitis; K76.0 Fatty (change of) liver, not elsewhere classified; F41.1 Generalized anxiety disorder; M65.30 Trigger finger, unspecified finger | CPT/HCPCS: 51798; 81003; 99212 ==

== ENCOUNTER 2025-04-01 09:53 | Outpatient (AMB) | payer MEDICARE, MEDICAID, SELFPAY ==
--- NOTE | 2025-04-01 09:55 | A.OFFVIS_ITS ---
Intake Visit Reasons: 6m/labs Intake Note: Patient is present for 6M LABS Urology Medication:TADALAFIL,TESTOSTERONE Antibiotic Allergy:NONE Blood Thinner:NONE Labs done :03/19/2025 PSA 3.91, Total testosterone : 700 pvr: 32 MLS Wound Care Coordinator Required: No Accompanied by: Self / Same As Patient Allergies No Known Allergies (No Known Allergies*) Allergy (Verified 04/01/25 09:56) HPI Comments Details: Krish is a pleasant male. He is a patient of Dr. Gary. He seen for the following urologic conditions - low testosterone - lower urinary tract symptoms Six-month follow-up Continues with testosterone Lab work within ideal range Significant improvement in well-being, strength, sleep Very happy that he has figured out the correct dosing for him Quality erections 1 packet per day Daily tadalafil Six-month follow-up office labs Hypogonadism He presents today for further evaluation of complaints regarding low testosteron e Initial symptoms include decreased libido, increased fatigue, erectile dysfunction The onset of symptoms has been gradual Erectile status - nocturnal erections to occur but not comparable to sexual stimulation Erectile quality - erections are adequate for penetration - erections are not maintained until ejaculation Associate conditions include hypertension, dyslipidemia, chronic pain with medication Concominant Medications - buspirone Laboratory results baseline - 10/02 168, 09/03 T 206 F 37 FSH 7.5, 06/03 T 222 F 37, 10/05 T 165, 04/04 T 450 P 2.5 H 50, 09/05 T 138 2.7. 04/05 700 3.9 52 Current therapy includes none. Prior therapy includes none Diagnosis based on history and laboratory results lab secondary to likely external medications suppression [facility] Medical History (Updated 04/01/25 @ 10:43 by Gianni Peñaloza MD) Obesity (BMI 30-39.9) LFT elevation Low testosterone Hypogonadism Colon cancer screening Osteoarthritis of glenohumeral joint Biceps tendonitis on left Painful arc syndrome of left shoulder Tendinopathy of left shoulder History of OCD (obsessive compulsive disorder) Medicare annual wellness visit, initial Acute meniscal tear of knee Polyp of left ear canal Impaired glucose tolerance Vitamin D deficiency Hypercholesterolemia Hypertension Anxiety and depression Degenerative disc disease, cervical GERD (gastroesophageal reflux disease) Surgical History History of esophagogastroduodenoscopy (EGD) Total knee replacement status History of appendectomy Family History Father Lung cancer Mother Leukemia Paternal Grandfather Myocardial infarction Son In good health Substance abuse Brother Substance abuse Social History Housing: Apartment Alcohol intake: current Alcohol intake frequency: does not drink Patient Tobacco Use Status: Never used Tobacco Tobacco use type: Cigarette e-Cigarette/Vaping Use: Never Used Second Hand Smoke Exposure: No service: No Current occupational status: 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 Cognitive needs: No Hearing needs: No Vision needs: Yes Review of Systems Const Denies chills and Denies fever(s) Card Reports no additional complaints and Denies syncope Resp Denies cough GI Denies abdominal pain and Denies heartburn Reports as per HPI and Denies change in libido Neuro Denies syncope Psych Denies change in libido Endo Denies change in libido Physical Exam Const General: cooperative, healthy appearing, comfortable and no acute distress Orientation/consciousness: patient oriented x3 HEENT Face and sinus: Yes normal facial exam Mouth: moist mucous membranes Neck Neck: Yes normal visual inspection, Yes full ROM and Yes trachea midline Chest Chest palpation & inspection: normal inspection of the chest Resp Effort & Inspection: normal respiratory effort, able to speak in complete sentences and no respiratory distress GI Inspection: Yes normal to inspection Back/Spine/Pelvis Cervical Spine: normal cervical lordosis Thoracic/Lumbar Spine: thoracic and lumbar spine normal to inspection Skin General skin exam: no rashes or lesions noted Neuro General: patient oriented x3, gait normal, tone normal and moves all extremities Extrem General: Yes normal to inspection and Yes capillary refill normal Assessment & Plan Assessment & Plan (1) Erectile dysfunction: Code(s): N52.9 - Male erectile dysfunction, unspecified Category: Medical (2) Hypogonadism in male: Code(s): E29.1 - Testicular hypofunction Category: Medical Plan Continue therapy Six-month follow-up Orders: Orders Testosterone, Total 6 Months E29.1 - Testicular hypofunction Prostate Specific Antigen 6 Months E29.1 - Testicular hypofunction Complete Blood Count no Diff 6 Months E29.1 - Testicular hypofunction Medications: Refilled testosterone 1 packet transdermal QAM 150 grams 5RF 30 days R79.89 - Other specified abnormal findings of blood chemistry tadalafil 5 mg PO DAILY 90 tabs 1RF sexual activity 90 days N52.9 - Male erectile dysfunction, unspecified Patient Instructions: This note is constructed using voice recognition software. While every effort has been made to ensure accuracy customer service rep errors may have been included. Imaging studies, laboratory and physical exam results were discussed and reviewed in detail. No major barriers to patient understanding were identified. An opportunity to ask questions regarding the treatment plan was provided. All questions were answered. The patient expressed understanding and agreement with the above treatment plan. The patient is aware they should contact our office by phone for worsening of their current condition or the appearance of new urologic symptoms. Compliance is encouraged with any medications and followup testing that is ordered. It is a privilege to participate in the urologic care of your patient. If you have any questions or concerns regarding treatment for the above conditions, or other urologic issues, please do not hesitate to contact me. The office telephone contact is [phone]. Sincerely, Dr Gianni Peñaloza MD, [facility] - Urology Compassionate Specialist Care for the Genitourinary System Coding Level of Care Code Est Pt Level 3 (08132) Complex EM visit Add On G2211 Diagnoses Erectile dysfunction N52.9 Hypogonadism in male E29.1
--- OUTSIDE RECORDS SUMMARY | 2025-04-01 11:16 | XMS_ITS | Patient Health Record ---
Author Organization [facility] Address [address] [place] [address] Care Team Providers Care Client Care Manager Name Role Phone Fabio Gary MD Primary Care Provider Thanh Church [phone] Allergies No Known Allergies Reason For Referral [...] Problem Status W/U Status Risk Notes Problem [id number] Encounter for screening for malignant neoplasm of colon (Z12.11) Active confirmed Problem [id number] Preprocedural examination (Z01.818) Active confirmed Problem [id number] History of colonic polyps (Z86.010) Active confirmed Problem Diverticulosis of colon ([id number]) Diverticulosis of colon (K57.30) Active confirmed Plan Of Treatment Future Test Test Name Order Date COLONOSCOPY 03/09/2021 Insurance Providers Payer Name Payer Address Payer Phone Subscriber Number Group Number Insured Name Patient Relationship to Insured Coverage Start Date Coverage End Date MEDICARE OF [place] [address] [place] [id number] ALEXSANDRA NOVAK Self - patient is the insured MEDICAID OF [facility] [address] [place] [address] [phone] [id number] ALEXSANDRA NOVAK Self - patient is the insured Medical (General) History Medical History History ICD Code Osteoarthritis hips and knee Hypertension Anxiety Denies CA,DM,CVA,Lung disease,renal dise ase Colonoscopy > 5 years ago wi th polyps removed---no records in [facility] [employer] EGD in 1999 with me-no Kimbrough's on biop sies-op note N/A Surgical History Surgery Date(Month/Year) Left knee replacement - Dr. Ann 2016 [place]
== END 2025-04-01 10:47 | disposition home or self-care (01) ==
LOC: HO.HUSH 09:54
PROVIDERS: PCP Internal Medicine; Visit Provider Urology
DX: N52.9 Male erectile dysfunction, unspecified (principal); E29.1 Testicular hypofunction; Z13.9 Encounter for screening, unspecified
CPT/HCPCS: 99213; G2211

== ENCOUNTER 2025-07-23 08:48 | Outpatient (AMB) | payer MEDICARE, MEDICAID, SELFPAY ==
--- NOTE | 2025-07-23 08:58 | A.OFFPC_ITS ---
Vital Signs 07/23/25 08:59 Height 6 ft Weight 231 lb 4 oz BMI 31.4 BP 112/72 Blood Pressure Location Lt brachial Position Sitting Pulse 73 Pulse Source Pulse Oximeter Temp 97.3 F Temp Source Temporal Artery Scan Pulse Oximetry (%) 97 Oxygen Delivery Method Room Air Intake Visit Reasons: SUZANNE, hepatic steatosis, obesity Intake Note: Patient is here to follow up on SUZANNE, Hepatic steatosis, Obesity. Possible trigger finger right hand requesting for referral to either Ortho or Arthritis dr. Toll Mechanic Required: No Wheel Aligner: Not Required per policy Accompanied by: Self / Same As Patient Allergies No Known Allergies (No Known Allergies*) Allergy (Verified 07/23/25 08:59) Tobacco use date assessed: 07/23/25 Fall risk assessment: No Falls in past year Last assessed Fall Risk: 07/23/25 Dental Screening Dental Screen Date: 09/04/24 HPI HPI Comments History of Present Illness Details The patient is a 64 year old male presenting for evaluation of his right fourth digit. He reports that about a month and a half ago, his right fourth finger started to become swollen and stiff, with the bone feeling larger. The finger can lock in place, requiring him to manually crack it. Symptoms are worse at night and upon waking, at which point he cannot open his hand without soaking it in hot water. Wearing a finger brace at night helps prevent the morning stiffness and pain. The patient has a history of osteoarthritis in his neck, hips, shoulder, and a prosthetic knee. He denies any history of kidney problems or gastrointestinal bleeding. He does not use any fuxo-[id number] medications like Tylenol or ibuprofen. [facility] Medical History (Updated 04/01/25 @ 10:43 by Gianni Peñaloza MD) Obesity (BMI 30-39.9) LFT elevation Low testosterone Hypogonadism Colon cancer screening Osteoarthritis of glenohumeral joint Biceps tendonitis on left Painful arc syndrome of left shoulder Tendinopathy of left shoulder History of OCD (obsessive compulsive disorder) Medicare annual wellness visit, initial Acute meniscal tear of knee Polyp of left ear canal Impaired glucose tolerance Vitamin D deficiency Hypercholesterolemia Hypertension Anxiety and depression Degenerative disc disease, cervical GERD (gastroesophageal reflux disease) Surgical History History of esophagogastroduodenoscopy (EGD) Total knee replacement status History of appendectomy Family History Father Lung cancer Mother Leukemia Paternal Grandfather Myocardial infarction Son In good health Substance abuse Brother Substance abuse Social History Housing: Apartment Alcohol intake: current Alcohol intake frequency: does not drink Patient Tobacco Use Status: Never used Tobacco Tobacco use type: Cigarette e-Cigarette/Vaping Use: Never Used Second Hand Smoke Exposure: No service: No Current occupational status: 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 Cognitive needs: No Hearing needs: No Vision needs: Yes Questionnaire Thrive Questionnaire Date Thrive assessed: 12/08/24 I am a: Patient What is your living situation today?: I have a steady place to live Within the past 12 months, did the food you bought not last and you didn't have the money to get more?: Often true Within the past 12 months, did you worry whether your food would run out before you got money to buy more?: Sometimes True Do you have trouble paying for medicines?: Yes Do you have trouble getting transportation to medical appointments?: No Do you have trouble paying your heating and electricity bill?: No Do you have trouble taking care of your child, family member or friend?: No Do you have trouble with day-to-day activities such as bathing, preparing meals, shopping, managing finances, etc.?: No Are you currently unemployed and looking for a job?: No Are you interested in more education?: No Currently or been in a relationship where the following occur: No concerns reported THRIVE Score: 2 SUZANNE-7 AMB Questionnaire SUZANNE-7 Date SUZANNE - 7 assessed: 12/08/24 Source: Developed by Drs. Thanh Campbell, Laura Hawthorne, Jose Alfredo Moreland and colleagues, with an educational karoline from [employer]. Physical exam (Primary Care) Vital Signs: Last Vital Signs Temp 97.3 F 07/23/25 08:59 Pulse 73 07/23/25 08:59 BP 112/72 07/23/25 08:59 Pulse Ox 97 07/23/25 08:59 Oxygen Delivery Method Room Air 07/23/25 08:59 Hand exam: Right 4th finger PIP joints swollen and tender to palpation, with finger not returning to straight position spontaneously after making a fist (has to be manually straightened) BMI result Body Mass Index 31.4 Tobacco/Smoking Status: Tobacco use Status Tobacco use date assessed 07/23/25 07/23/25 09:04 Patient Tobacco Use Status Never used Tobacco 07/23/25 09:04 Tobacco use type Cigarette 07/23/25 09:04 e-Cigarette/Vaping Use Never Used 07/23/25 09:04 Thrive Assessment: Date of Thrive Assessment Date Thrive assessed 12/08/24 07/23/25 09:04 Currently or been in a relationship where the following occur: No concerns reported Coding Level of Care Code Est Pt Level 3 (45125) Diagnoses Joint swelling M25.40 Assessment & Plan Assessment & Plan (1) Joint swelling: Code(s): M25.40 - Effusion, unspecified joint Plan: Patient presenting with a month and a half history of progressive pain, swelling and stiffness of the right hand 4th digit PIP joint. Denies swelling or stif fness of other joints. Has a history of osteoarthritis. Obtain x-ray of the right hand. Start celecoxib 100 mg twice a day for 5 days course then on as- needed basis. Advised to avoid taking other NSAIDs while on celecoxib including ibuprofen and naproxen. Take with food and a glass of water. Refer to hand surgery as patient is interested to explore the option for cortisone injection. Orders: Orders XR hand RT min 3V Today M25.40 - Effusion, unspecified joint Referrals Hand Surgery Referral M25.50 - Pain in unspecified joint Medications: New celecoxib 100 mg PO BID PRN 20 caps 0RF pain
[2025-07-23 08:59] VITALS: BP 112/72; PULSE 73; TEMP 36.3; O2SAT 97; BMI 31.4
== END 2025-07-23 09:26 | disposition home or self-care (01) ==
LOC: HO.HMCH 08:49
PROVIDERS: PCP Internal Medicine; Visit Provider Student in an Organized Health Care Education/Training Program
DX: M25.40 Effusion, unspecified joint (principal)

== ENCOUNTER → 2025-07-23 08:48 | Outpatient (BNVA) | payer MEDICARE, MEDICAID, SELFPAY | PROVIDERS: PCP Internal Medicine; Visit Provider Student in an Organized Health Care Education/Training Program | DX: M25.441 Effusion, right hand (principal); E66.9 Obesity, unspecified; Z68.31 Body mass index [BMI] 31.0-31.9, adult | CPT/HCPCS: 99212 ==

== ENCOUNTER 2025-07-24 06:56 | Outpatient (REF) | payer MEDICARE, MEDICAID, SELFPAY ==
--- NOTE | ~2025-07-24 | XR_ITS ---
EXAMINATION: XR HAND, RIGHT CLINICAL INFORMATION: M25.40 - Effusion, unspecified joint COMPARISON: None available. TECHNIQUE: PA, lateral, and oblique views of the right hand. FINDINGS: There are mild degenerative changes in the DIP joints with mild to moderate joint space narrowing and marginal osteophytes, most advanced at the fifth digit. There is mild joint space narrowing of the PIP joints. There is mild to moderate narrowing of the IP joint of the thumb with marginal osteophytes. There is mild to moderate asymmetric narrowing of the first MCP joint with sclerosis on the radial side and marginal osteophytes. There is mild to moderate narrowing of the second MCP joint and mild narrowing of the third with minute marginal osteophytes. XR/XR hand RT min 3V IMPRESSION: Mild to moderate changes of osteoarthritis are most pronounced at the IP joint of thumb, MCP joint of the second digit, and DIP joint of the fifth digit. Electronically signed by: Hill Gregory MD 07/26/2025 10:04 AM RAFAEL
--- OUTSIDE RECORDS SUMMARY | 2025-07-24 07:00 | XMS_ITS | Patient Health Record ---
Author Organization [facility] Address [address] [place] [address] Care Team Providers Care Agriculture Inspector Name Role Phone Fabio Gary MD Primary Care Provider Thanh Church [phone] Allergies No Known Allergies Reason For Referral No Information Medications Medication SIG (Take, Route, Frequency, Duration) Notes Start Date End Date Status busPIRone HCl 10 MG Tablet Oral; Duration: 90 Active traMADol HCl 50 MG Tablet TAKE 1 TABLET 4 TIMES A DAY NEEDED FOR PAIN Oral; Duration: 30 Active Atenolol 100 MG Tablet as directed Oral Once a day Active LORazepam 1 MG Tablet as directed Oral T wice a day Active Social History Tobacco Use: Social History Observation Description Date Details (start date - stop date) Never Smoker NA - NA Social History Drugs/Alcohol: Social Info Question Answer Notes Alcohol Screen Did you have a drink containing alcohol in the past year? No Points 0 Interpretation Negative Tobacco Use: Social Info Question Answer Notes Tobacco Use/Smoking Patient is a nonsmoker Additional Details Category Social Info Options Details Miscellaneous: Marital status: Occupation: Retired Section Notes: Quit EtOH 2 years ago year 2 019, nonsmoker Problems Problem Type SNOMED Code ICD Code Onset Dates Problem Status W/U Status Risk Notes Problem Screening for malignant neoplasm of colon (556386464) Encounter for screening for malignant neoplasm of colon (Z12.11) Active confirmed Problem Preprocedural examination (900074959868316) Preprocedural examination (Z01.818) Active confirmed Problem History of polyp of colon (situation) (422974462) History of colonic polyps (Z86.010) Active confirmed Problem Diverticulosis of colon (031067769) Diverticulosis of colon (K57.30) Active confirmed Plan Of Treatment Future Test Test Name Order Date COLONOSCOPY 03/09/2021 Insurance Providers Payer Name Payer Address Payer Phone Subscriber Number Group Number Insured Name Patient Relationship to Insured Coverage Start Date Coverage End Date MEDICARE OF [place] [address] [place] [id number] ALEXSANDRA NOVAK Self - patient is the insured [place] [facility] [address] [place] [phone] [id number] ALEXSANDRA NOVAK Self - patient is the insured Medical (General) History Medical History History ICD Code Osteoarthritis hips and knee Hypertension Anxiety Denies DC,DM,CVA,Lung disease,renal dise ase Colonoscopy > 5 years ago wi th polyps removed---no records in [facility] EGD in 1999 with me-no Kimbrough's on biop sies-op note N/A Surgical History Surgery Date(Month/Year) Left knee replacement - Dr. Ann 2016 Appy
== END 2025-07-24 06:57 | disposition home or self-care (01) ==
LOC: HO.XRAY 06:56
PROVIDERS: PCP Internal Medicine; Visit Provider Student in an Organized Health Care Education/Training Program
DX: M25.441 Effusion, right hand (principal)
CPT/HCPCS: 73130

== ENCOUNTER → 2025-07-24 07:00 | Outpatient (BNV) | payer MEDICARE, MEDICAID, SELFPAY | PROVIDERS: PCP Internal Medicine; Visit Provider Radiology Diagnostic Radiology | DX: M19.041 Primary osteoarthritis, right hand (principal) | CPT/HCPCS: 73130 ==